=== PATIENT | male | born 1965 | race Caucasian/White ===

== ENCOUNTER 2018-10-23 21:36 | Outpatient (REF) | payer BC, SELFPAY ==
[2018-10-23 22:55] LABS: ALT 79 U/L (12-78); AST 34 U/L (15-37); Albumin 3.6 g/dL (3.4-5.0); Alkaline Phosphatase 93 U/L (46-116); Anion Gap 11.2 mmol/L (3-11); BUN 17 mg/dL (7-18); Bilirubin, Total 0.3 mg/dL (0.2-1.0); CO2 29.8 mmol/L (21.0-32.0); CREATININE 1.01 mg/dL (0.70-1.30); Calcium 9.6 mg/dL (8.5-10.1); Chloride 96 mmol/L (98-107); Cholesterol 208 mg/dL (50-200); Glucose 261 mg/dL (70-100); HDL Cholesterol 31 mg/dL (40-60); LDL CHOLESTEROL 139 mg/dL (<100); Magnesium 1.4 mg/dL (1.8-2.4); Potassium 3.4 mmol/L (3.5-5.1); Sodium 137 mmol/L (136-145); Total Protein 7.3 g/dL (6.4-8.2); Triglyceride 321 mg/dL (30-150); Vitamin B12 626 pg/mL (193-986)
[2018-10-23 23:37] LABS: Creatine Kinase 281 U/L (39-308)
[2018-10-26 11:28] LABS: Hepatitis A Antibody IgM Negative (NEGAT); Hepatitis B Core Antibody Negative (NEGAT); Hepatitis B surface Ag Negative (NEGAT); Hepatitis C Ab w Rflx HCV PCR Negative (NEGAT)
== END 2018-10-23 21:56 ==
LOC: NCHCN 21:36
PROVIDERS: PCP Nurse Practitioner; Visit Provider Nurse Practitioner Family
DX: E78.5 Hyperlipidemia, unspecified (principal); E11.9 Type 2 diabetes mellitus without complications; M45.9 Ankylosing spondylitis of unspecified sites in spine; I10 Essential (primary) hypertension; K21.9 Gastro-esophageal reflux disease without esophagitis; R74.0 Nonspecific elevation of levels of transaminase and lactic acid dehydrogenase [LDH]
CPT/HCPCS: 80053; 80061; 82550; 83721; 86704; 86709; 86803; 87340; 82607; 83735

== ENCOUNTER 2018-11-06 00:26 | Outpatient (CLI) | payer BC, SELFPAY ==
--- NOTE | 2018-11-06 08:53 | DI.US_ITS ---
SYMPTOMS/DIAGNOSIS: ELEVATED TRANSAMINASES, R74.0, HYPOMAGNESEMIA, E83.42, HYPERLIPIDEMIA, E79.5 ABDOMINAL ULTRASOUND: Comparison CT scan is 01/17/09. The proximal aorta is not well visualized. The mid and distal aorta is of normal caliber. The proximal IVC is unremarkable. The liver is normal in size. There is diffuse increased echogenicity of the liver consistent with fatty infiltration. No hepatic mass is seen. The gallbladder, bile ducts and spleen are unremarkable. The tail of the pancreas was not well visualized due to overlying bowel. The remainder of the pancreas has a normal appearance. The kidneys have a normal appearance except for a 0.9 cm simple cyst on the left kidney. IMPRESSION: Hepatic steatosis.
== END 2018-11-06 00:46 ==
PROVIDERS: PCP Internal Medicine; Visit Provider Nurse Practitioner Family
DX: R74.0 Nonspecific elevation of levels of transaminase and lactic acid dehydrogenase [LDH] (principal); E83.42 Hypomagnesemia; E78.5 Hyperlipidemia, unspecified; K76.0 Fatty (change of) liver, not elsewhere classified
CPT/HCPCS: 76700

== ENCOUNTER 2018-11-06 16:29 | Outpatient (REF) | payer BC, SELFPAY ==
[2018-11-06 22:16] LABS: Magnesium 1.7 mg/dL (1.8-2.4); Potassium 4.1 mmol/L (3.5-5.1)
== END 2018-11-06 16:49 ==
LOC: NCHCN 16:29
PROVIDERS: PCP Internal Medicine; Visit Provider Nurse Practitioner Family
DX: E83.42 Hypomagnesemia (principal); I10 Essential (primary) hypertension
CPT/HCPCS: 83735; 84132

== ENCOUNTER 2019-01-22 22:24 | Outpatient (REF) | payer BC, SELFPAY ==
[2019-01-22 21:44] LABS: ALT 96 U/L (12-78); AST 47 U/L (15-37); Albumin 3.8 g/dL (3.4-5.0); Alkaline Phosphatase 90 U/L (46-116); Anion Gap 8.8 mmol/L (3-11); BUN 17 mg/dL (7-18); Bilirubin, Total 0.2 mg/dL (0.2-1.0); CO2 31.2 mmol/L (21.0-32.0); CREATININE 1.07 mg/dL (0.70-1.30); Calcium 9.3 mg/dL (8.5-10.1); Chloride 96 mmol/L (98-107); Creatine Kinase 352 U/L (39-308); Glucose 323 mg/dL (70-100); Magnesium 1.6 mg/dL (1.8-2.4); Potassium 3.6 mmol/L (3.5-5.1); Sodium 136 mmol/L (136-145); Total Protein 7.3 g/dL (6.4-8.2)
== END 2019-01-22 22:44 ==
LOC: NCHCN 22:24
PROVIDERS: PCP Internal Medicine; Visit Provider Nurse Practitioner Family
DX: E78.5 Hyperlipidemia, unspecified (principal); E11.9 Type 2 diabetes mellitus without complications; I10 Essential (primary) hypertension; K21.9 Gastro-esophageal reflux disease without esophagitis; K76.0 Fatty (change of) liver, not elsewhere classified; M45.9 Ankylosing spondylitis of unspecified sites in spine
CPT/HCPCS: 80053; 82550; 83735

== ENCOUNTER 2019-05-15 18:29 | Outpatient (REF) | payer BC, SELFPAY ==
[2019-05-15 22:32] LABS: Magnesium 2.1 mg/dL (1.8-2.4)
== END 2019-05-15 18:49 ==
LOC: NCHCN 18:29
PROVIDERS: PCP Internal Medicine; Visit Provider Nurse Practitioner Family
DX: E83.42 Hypomagnesemia (principal); R74.8 Abnormal levels of other serum enzymes; R74.0 Nonspecific elevation of levels of transaminase and lactic acid dehydrogenase [LDH]; I10 Essential (primary) hypertension
CPT/HCPCS: 83735

== ENCOUNTER 2019-09-27 00:41 | Outpatient (CLI) | payer BC, SELFPAY ==
--- NOTE | 2019-09-27 13:12 | DI.RAD_ITS ---
EXAM: XR CERVICAL SPINE COMP 4-5V INDICATION: ANKYLOSING SPONDYLITIS M45.9. COMPARISON: No exams were available for comparison TECHNIQUE: 2D digital imaging was performed. FINDINGS: There is narrowing and spurring at the anterior arch of C1 with the dens. There are endplate osteoph ytes projecting anteriorly at C2-3 and C4-5. Syndesmophyte formation is seen from C2 through C4. Th ere is some straightening of the normal cervical lordosis at these levels. The disc spaces are well m aintained. There is mild to moderate bilateral neural foraminal narrowing. IMPRESSION: Syndesmophyte formation greatest from C2 through C4.
--- NOTE | 2019-09-27 13:17 | DI.RAD_ITS ---
EXAM: XR THORACIC SPINE COMPLETE INDICATION: ANKYLOSING SPONDYLITIS M45.9. COMPARISON: THORACIC SPINE from 12/03/2011 TECHNIQUE: 2D digital imaging was performed. FINDINGS: There is again noted to be accenuation of the normal thoracic kyphosis. No compression fractures ar e seen. There is mild syndesmophyte formation seen along the anterior and lateral aspect of the vert ebral bodies. There is a mild levoscoliosis at the thoracolumbar junction. IMPRESSION: Mild syndesmophyte formation, consistent with the patient's history of ankylosing spondylitis. Findi ngs not significantly changed from the previous exam.
--- NOTE | 2019-09-27 13:20 | DI.RAD_ITS ---
EXAM: XR LUMBAR SPINE COMPLETE INDICATION: ANKYLOSING SPONDYLITIS M45.9. COMPARISON: No exams were available for comparison TECHNIQUE: 2D digital imaging was performed. FINDINGS: There is mild syndesmophyte formation seen greatest laterally at L2-3 and L 3 4. There is some air irregularity of both SI joints. The pubic symphysis is unremarkable. The disc spaces are and verteb ral bodies are well maintained in height. There is no spondylolysis or spondylolisthesis. IMPRESSION: Mild syndesmophyte formation and bilateral SI joint irregularity consistent with the patient's histor y of ankylosing spondylitis.
== END 2019-09-27 01:01 ==
PROVIDERS: PCP Internal Medicine; Visit Provider Nurse Practitioner Family
DX: M45.5 Ankylosing spondylitis of thoracolumbar region (principal); M53.3 Sacrococcygeal disorders, not elsewhere classified; M45.3 Ankylosing spondylitis of cervicothoracic region
CPT/HCPCS: 72050; 72072; 72110

== ENCOUNTER 2019-11-26 19:30 | Outpatient (REF) | payer BC, SELFPAY ==
[2019-11-26 21:07] LABS: ALT 98 U/L (16-63); AST 45 U/L (15-37); Albumin 3.6 g/dL (3.4-5.0); Alkaline Phosphatase 88 U/L (46-116); Anion Gap 12.8 mmol/L (3-11); BUN 15 mg/dL (7-18); Bilirubin, Total 0.3 mg/dL (0.2-1.0); CO2 28.2 mmol/L (21.0-32.0); CREATININE 1.11 mg/dL (0.70-1.30); Calcium 9.2 mg/dL (8.5-10.1); Calculated LDL 129 mg/dL (<100); Chloride 99 mmol/L (98-107); Cholesterol 205 mg/dL (<200); Glucose 134 mg/dL (74-106); HDL Cholesterol 29 mg/dL (40-60); Magnesium 1.5 mg/dL (1.8-2.4); Potassium 3.5 mmol/L (3.5-5.1); Sodium 140 mmol/L (136-145); Triglyceride 237 mg/dL (<150)
== END 2019-11-26 19:50 ==
LOC: NCHCN 19:30
PROVIDERS: PCP Internal Medicine; Visit Provider Nurse Practitioner Family
DX: R74.8 Abnormal levels of other serum enzymes (principal); K76.0 Fatty (change of) liver, not elsewhere classified; E83.42 Hypomagnesemia; E78.5 Hyperlipidemia, unspecified; E11.9 Type 2 diabetes mellitus without complications; I10 Essential (primary) hypertension; K21.9 Gastro-esophageal reflux disease without esophagitis; M45.9 Ankylosing spondylitis of unspecified sites in spine
CPT/HCPCS: 80053; 80061; 83735

== ENCOUNTER 2020-04-03 02:57 | Outpatient (CLI) | payer BC, SELFPAY ==
--- NOTE | 2020-04-03 | DI.US_ITS ---
EXAM: US PAIN CLINIC NEEDLE GUIDANCE CLINICAL HISTORY: ANKYLOSING SPONDYLITIS WITH GLOBAL SPINE PAIN. TECHNIQUE: Ultrasound was performed using standard protocol. COMPARISON: No exams were available for comparison FINDINGS: Sonographic assessment utilizing grayscale and color Doppler imaging was performed and targeted to th e area of clinical concern. Ultrasound was provided for guidance with pain clinic injection of the l umbar spine. Please see procedure note for details. DATA REPOSITORY:
[2020-04-03 13:17] VITALS: BP 114/82; PULSE 71; RESP 16; TEMP 36.5; O2SAT 97
[2020-04-03 13:46] VITALS: PULSE 77; O2SAT 100
--- NOTE | 2020-04-03 13:51 | PDOC.PAIN_ITS ---
Pain Clinic Procedure Note Procedure Note Procedure Note: ULTRASOUND GUIDED bilateral trapezius and lumbar paraspinous muscle trigger point injections Pre-Procedural Evaluation: JASBIR TONY has been referred to the [facility] for an Ultrasound Guided bilateral trapezius and lumbar paraspinous muscle trigger point injections for a chief complaint of muscle pain. Pre-procedure Pain Score: 5/10 DX: Muscle pain Patient was interviewed and the medical record reviewed. There were no medical, pharmacologic, radiographic, or other structural contraindications to preforming an ultrasound guided injection. Risks and expected side effects as well as potential benefits of the procedure were reviewed. The patient consent form was signed and witnessed. Standard time-out procedure was performed. The use of direct ultrasound visualization of the needle (rather than a non- guided injection) was required to increase patient safety by excluding inadvertent intramuscular, intratendinous, or intraneural needle placement and minimizing bleeding by avoiding osteochondral or vascular injury from the needle. Additionally, the increased accuracy of placement may increase clinical effectiveness and will allow higher diagnostic specificity when evaluating effectiveness of this injection. Procedure Description: The patient was placed in theprone position and automated blood pressure cuff and pulse oximeter applied for monitoring during the procedure and recorded in the medical record. Pre-injection ultrasound scanning of the area of interest was performed using a linear transducer, identifying relevant anatomy, landmarks, and neurovascular structures allowing for optimal needle path. The site was then prepared in the usual sterile fashion, using thorough Chlorhexadine preparation of the skin and sterile draping. The same ultrasound transducer was then passed into the sterile field using sterile probe cover and sterile ultrasound gel. The injection target was again visualized. Skin and subcutaneous tissues were anesthetized with 3 mL of 1% Lidocaine. A 21G 100 mm Pajunk US needle was placed under live ultrasound guidance, using an in- plane approach, to the target area. After visualization of the needle tip at the target area, 1 cc of 2% lidocaine was delivered to each muscle after negative aspiration for blood. Several passes were then made through each muscle. Ultrasound images were captured and stored for documentation purposes. Post-procedure Pain Score:1/10 Vital signs were stable throughout the procedure and were as recorded in the docflowsheet by the nursing staff. Follow up plans and appointments were discussed with the patient.Post procedure instruction was given as documented in nursing documentation and having met discharge criteria, they were discharged from the [facility]. COMMENTS: Home exercises were taught
[2020-04-03] MEDS: Lidocaine 2% Pres-Free 5 ML VIAL IJ (13:52)
== END 2020-04-03 03:17 ==
PROVIDERS: PCP Internal Medicine; Visit Provider Preventive Medicine Occupational Medicine
DX: M54.5 Low back pain (principal)
CPT/HCPCS: 20553; 76942

== ENCOUNTER 2021-08-17 17:49 | Outpatient (REF) | payer BC, SELFPAY ==
[2021-08-17 22:30] LABS: COMMENT (LAB VIEW ONLY) 135.84 mg/dL
== END 2021-08-17 17:50 | disposition home or self-care (01) ==
LOC: NCHCN 17:49
PROVIDERS: PCP Internal Medicine; Visit Provider Family Medicine
DX: E11.9 Type 2 diabetes mellitus without complications (principal)
CPT/HCPCS: 82043; 82570

== ENCOUNTER 2021-10-19 17:01 | Outpatient (REF) | payer BC, SELFPAY ==
[2021-10-19 21:08] LABS: Anion Gap 9.2 mmol/L (3-11); BUN 12 mg/dL (7-18); CO2 29.8 mmol/L (21.0-32.0); CREATININE 0.9 mg/dL (0.70-1.30); Calcium 9.2 mg/dL (8.5-10.1); Chloride 104 mmol/L (98-107); Glucose 143 mg/dL (74-106); Potassium 4.4 mmol/L (3.5-5.1); Sodium 143 mmol/L (136-145)
== END 2021-10-19 17:02 | disposition home or self-care (01) ==
LOC: NCHCN 17:01
PROVIDERS: PCP Internal Medicine; Visit Provider Family Medicine
DX: I10 Essential (primary) hypertension (principal); E87.6 Hypokalemia; E83.42 Hypomagnesemia
CPT/HCPCS: 80048

== ENCOUNTER 2022-02-12 17:45 | Outpatient (REF) | payer BC, SELFPAY ==
[2022-02-12 20:34] LABS: HCT 42.4 % (40.0-50.0); HGB 13.9 g/dL (13.5-17.5); MCH 29.7 pg (27.0-33.0); MCHC 32.8 % (32.0-36.0); MCV 91 fL (80-95); MPV 9.9 fL (8.0-11.0); Platelet Count 455 10^3/uL (130-400); RBC 4.68 10^6/uL (4.36-5.78); RDW 14.5 % (11.8-14.1); RDW-SD 47.9 fL; WBC 10.24 10^3/uL (4.4-10.8)
[2022-02-12 20:47] LABS: Anion Gap 8.5 mmol/L (3-11); BUN 12 mg/dL (7-18); CO2 31.5 mmol/L (21.0-32.0); Calcium 9.4 mg/dL (8.5-10.1); Chloride 98 mmol/L (98-107); Glucose 174 mg/dL (74-106); Potassium 3.6 mmol/L (3.5-5.1); Sodium 138 mmol/L (136-145)
[2022-02-12 20:53] LABS: Hemoglobin A1C 6.3 % (<5.7)
== END 2022-02-12 17:46 | disposition home or self-care (01) ==
LOC: NCHCN 17:45
PROVIDERS: PCP Internal Medicine; Visit Provider Family Medicine
DX: I10 Essential (primary) hypertension (principal); E11.9 Type 2 diabetes mellitus without complications
CPT/HCPCS: 80048; 85027; 83036

== ENCOUNTER 2022-12-21 09:48 | Emergency (ER) | payer OTHER, SELFPAY ==
[2022-12-21 10:08] VITALS: BP 127/79; PULSE 63; RESP 18; TEMP 37.1; O2SAT 97
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
[2022-12-21] MEDS: Ketorolac 15 MG/ML VIAL IM (11:19)
[2022-12-21] MEDS: Lidocaine 5% Patch 1 PATCH TP (11:19)
== END 2022-12-21 11:19 | disposition home or self-care (01) ==
PROVIDERS: Emergency Provider Emergency Medicine; PCP Internal Medicine
DX: G89.11 Acute pain due to trauma (principal); M54.50 Low back pain, unspecified; M54.6 Pain in thoracic spine; I10 Essential (primary) hypertension; E11.9 Type 2 diabetes mellitus without complications; V89.2XXA Person injured in unspecified motor-vehicle accident, traffic, initial encounter
CPT/HCPCS: 96372; 99283; J1885

== ENCOUNTER 2023-07-13 15:06 | Outpatient (REF) | payer OTHER, SELFPAY ==
[2023-07-13 16:25] LABS: HCT 43.5 % (40.0-50.0); HGB 14.3 g/dL (13.5-17.5); MCH 28.3 pg (27.0-33.0); MCHC 32.9 % (32.0-36.0); MCV 86 fL (80-95); MPV 10.2 fL (8.0-11.0); Platelet Count 502 10^3/uL (130-400); RBC 5.05 10^6/uL (4.36-5.78); RDW 15.3 % (11.8-14.1); RDW-SD 48.4 fL; WBC 10.73 10^3/uL (4.4-10.8)
[2023-07-13 16:55] LABS: ALT 25 U/L (16-63); AST 21 U/L (15-37); Albumin 3.8 g/dL (3.4-5.0); Alkaline Phosphatase 96 U/L (46-116); BUN 15 mg/dL (7-18); Bilirubin, Total 0.2 mg/dL (0.2-1.0); Calcium 9.9 mg/dL (8.5-10.1); Chloride 97 mmol/L (98-107); Creatine Kinase 205 U/L (39-308); Glucose 209 mg/dL (74-106); Potassium 3.8 mmol/L (3.5-5.1); Sodium 136 mmol/L (136-145); Total Protein 7.5 g/dL (6.4-8.2)
== END 2023-07-13 15:07 | disposition home or self-care (01) ==
LOC: NCHCN 15:06
PROVIDERS: PCP Internal Medicine; Visit Provider Family Medicine
DX: E11.9 Type 2 diabetes mellitus without complications (principal); I10 Essential (primary) hypertension; E87.6 Hypokalemia; K21.9 Gastro-esophageal reflux disease without esophagitis
CPT/HCPCS: 80053; 82550; 85027

== ENCOUNTER 2023-10-24 15:29 | Outpatient (REF) | payer OTHER, SELFPAY ==
[2023-10-24 21:31] LABS: Abs Immature Grans 0.03 10^3/uL (0.0-0.06); Absolute Eosinophil Count 0.44 10^3/uL (0.0-0.7); Absolute Lymphocyte Count 2.69 10^3/uL (1.2-3.4); Absolute Monocyte Count 0.76 10^3/uL (0.1-0.8); Absolute Neutrophil Count 6.04 10^3/uL (1.2-6.7); Eosinophils % 4.4; HCT 40.1 % (40.0-50.0); HGB 13.2 g/dL (13.5-17.5); Immature Grans % 0.3; Lymphocytes % 26.7; MCH 27.8 pg (27.0-33.0); MCHC 32.9 % (32.0-36.0); MCV 85 fL (80-95); MPV 10.8 fL (8.0-11.0); Monocytes % 7.6; Platelet Count 351 10^3/uL (130-400); RBC 4.74 10^6/uL (4.36-5.78); RDW 15.1 % (11.8-14.1); RDW-SD 46.5 fL; WBC 10.06 10^3/uL (4.4-10.8)
== END 2023-10-24 15:30 | disposition home or self-care (01) ==
LOC: NCHCN 15:29
PROVIDERS: PCP Family Medicine; Visit Provider Family Medicine
DX: E11.9 Type 2 diabetes mellitus without complications (principal)
CPT/HCPCS: 85025

== ENCOUNTER 2023-12-05 15:18 | Inpatient (IN) | payer OTHER, SELFPAY ==
[2023-12-05] VITALS (48 sets, daily range): BP systolic 132–243; BP diastolic 71–102; PULSE 41–54; RESP 9–21; TEMP 36.8–37; O2SAT 94–96
--- NOTE | 2023-12-05 15:00 | RT.EKG_ITS ---
APPROVED REPORT Exam: Resting ECG Reason for Exam: chest pain Patient Location: E HR:45 bpm ECG Measurements Heart Rate 45 AXIS MN 198 P 46 QRSd 146 QRS 65 QT 486 T 5 QTc 419 Conclusion Sinus bradycardia 45 RBBB no stemi
--- NOTE | 2023-12-05 15:15 | DI.RAD_ITS ---
Exam(s) XR PORTABLE CHEST AP EXAM: XR PORTABLE CHEST AP CLINICAL HISTORY: chest pain. TECHNIQUE: 2D digital imaging was performed. COMPARISON: No exams were available for comparison FINDINGS: Single AP portable view. Heart size is upper normal. The mediastinum is not widened. Lungs are clear. No infiltrates nor obvious pleural effusions. IMPRESSION: No acute pulmonary findings on this single AP portable view of the chest. DATA REPOSITORY: RADIATION DOSE DELIVERED:
[2023-12-05 15:36] LABS: Abs Immature Grans 0.05 10^3/uL (0.0-0.06); Absolute Basophil Count 0.12 10^3/uL (0.0-0.2); Absolute Eosinophil Count 0.43 10^3/uL (0.0-0.7); Absolute Lymphocyte Count 3.21 10^3/uL (1.2-3.4); Absolute Monocyte Count 0.83 10^3/uL (0.1-0.8); Absolute Neutrophil Count 6.89 10^3/uL (1.2-6.7); Eosinophils % 3.7; HCT 42.5 % (40.0-50.0); HGB 13.9 g/dL (13.5-17.5); Immature Grans % 0.4; Lymphocytes % 27.9; MCH 27.3 pg (27.0-33.0); MCHC 32.7 % (32.0-36.0); MCV 83 fL (80-95); MPV 10.1 fL (8.0-11.0); Monocytes % 7.2; Neutrophils % 59.8; Platelet Count 417 10^3/uL (130-400); RDW 14.9 % (11.8-14.1); RDW-SD 45.1 fL; WBC 11.52 10^3/uL (4.4-10.8)
[2023-12-05 15:47] LABS: INR 0.9 (0.9-1.1); Prothrombin Time 9.3 sec (9.1-11.1)
[2023-12-05 15:58] LABS: ALT 29 U/L (16-63); AST 16 U/L (15-37); Albumin 3.9 g/dL (3.4-5.0); Alkaline Phosphatase 81 U/L (46-116); Anion Gap 10.2 mmol/L (3-11); BUN 15 mg/dL (7-18); Bilirubin, Total 0.2 mg/dL (0.2-1.0); CO2 29.8 mmol/L (21.0-32.0); CREATININE 0.9 mg/dL (0.70-1.30); Calcium 9.7 mg/dL (8.5-10.1); Chloride 100 mmol/L (98-107); Estimated GFR 98.38 (mL/min/1.73m2); Glucose 72 mg/dL (74-106); Magnesium 1.8 mg/dL (1.8-2.4); NT-proBNP 127 pg/mL (<300); Potassium 3.4 mmol/L (3.5-5.1); Sodium 140 mmol/L (136-145); Total Protein 7.9 g/dL (6.4-8.2); Troponin I < 50 ng/L (< or =60)
[2023-12-05] MEDS: Acetaminophen 500 MG TAB 1000 MG PO (16:36)
[2023-12-05 17:09] LABS: Troponin I < 50 ng/L (< or =60)
[2023-12-05] MEDS: amLODIPine 5 MG TAB PO (17:15)
--- NOTE | 2023-12-05 17:30 | DI.CT_ITS ---
Exam(s) CT HEAD WO EXAM: CT HEAD WO CLINICAL HISTORY: headache. TECHNIQUE: Imaging Protocol: Axial computed tomography images with coronal and sagittal reformatted images were created and reviewed COMPARISON: No exams were available for comparison FINDINGS: There are no skull fractures. There is no fluid in the visualized paranasal sinuses. There is no evidence of intracranial hemorrhage, mass effect, or shift of midline structures. There are no extra-axial fluid collections. The ventricles are not enlarged or shifted and there is no blo od within the ventricular system nor within the basal cisterns. There is some periventricular hypodensity consistent with chronic small vessel disease, this most duke dent around the posterior aspect of the left lateral ventricle in the left parietal region. There is calcification left vertebral artery at the skull base. IMPRESSION: Some mild hypodensity in the left parietal lobe which may be consistent with chronic small vessel dis ease but comparison to any prior outside images would be helpful if they exist. If clinically indica mackenzie follow-up MRI imaging can be performed. RADIATION DOSE DELIVERED: 735.84mGy.cm Total DLP DATA REPOSITORY: All CT scans at this facility are submitted to the National Radiology Data Registry (NRDR) Dose Index Registry (DIR) with the [employer] (ACR). RADIATION OPTIMIZATION: All CT scans at this facility use at least one of these dose optimization te chniques: automated exposure control; mA and/or kV adjustment per patient size (includes targeted exa ms where dose is matched to clinical indication); or iterative reconstruction.
--- NOTE | 2023-12-05 18:25 | W.PM.HP.N ---
Date of service: 12/05/23 Time of Service: 19:02 Assessment and Plan Assessment and plan (1) Hypertensive emergency: Status: Acute Assessment and plan: - Patient presented chest pain and headache was found to have an initial blood pressure of 212/92 -While in the emergency department he was given 5 mg Norvasc and nitroglycerin paste which improved patient's chest pain as well as his blood pressure systolically down to 140 -Will not replace Nitropaste as do want to allow for permissive hypertension as patient was also found to have parietal lobe CVA -At this time we will hold home antihypertensives including chlorthalidone, lisinopril (2) CVA (cerebral vascular accident): Status: Chronic Assessment and plan: - As noted on head CT patient appears to have on hypodensity left parietal lobe which may be consistent with chronic small vessel disease but could also be CVA -MRI/MRA head and neck has been ordered as well as echocardiogram -Aspirin was not given in the emergency department but will be ordered upon arrival to [facility] (3) Bradycardia: Status: Acute Assessment and plan: - Patient also found to be bradycardic with heart rates in the 40s during ED evaluation -This likely secondary to atenolol which patient takes 100 mg daily -Will hold atenolol and placed in ICU for close cardiac monitoring -If patient develops symptomatic bradycardia or his heart rate is consistently under 30 will initiate atropine -Additionally, if patient remains bradycardic after reasonable. For which atenolol should be washed out of his system, will consult cardiology for possible evaluation of pacemaker placement (4) Insulin dependent type 2 diabetes mellitus: Status: Acute Assessment and plan: - Continue home long-acting insulin, Lantus 28 units daily -Sliding scale insulin, carb consistent diet History of Present Illness History of Present Illness Chief Complaint: Chest pain for about 1 month, headache for 1 day Narrative: 58-year-old male with a past medical history of IDDM, hypertension, peripheral neuropathy, presents emergency department with complaints of chest pain and headache. Patient states that he has noticed that his blood pressure has been elevated over the last few days and that he has had some associated chest pressure with this but does not describe it as pain. He also states that he has been having an ongoing headache does not know how long it has been going on for. He denies any lightheadedness, dizziness, visual changes, nausea vomiting diarrhea constipation, upper or lower extremity weakness. In the emergency department the patient was noted as being significantly hypertensive with systolics in the 210s and bradycardia with heart rate in the 40s. CBC and CMP were unremarkable, and troponin was negative, but head CT showed area in the parietal lobe that could be either chronic microvascular change or potential CVA. He was given Norvasc for his blood pressure and ultimately nitroglycerin patient with did improve his pressures down to the 150s systolic. However, emergency room physician paged hospitalist for admission for patient with suspected CVA and bradycardia. Review of Systems All systems reviewed & are unremarkable except as noted in HPI and below PFSH All Active Problems (Updated 12/05/23 @ 21:15 by Marla Son MD) Insulin dependent type 2 diabetes mellitus (Acute) Bradycardia (Acute) CVA (cerebral vascular accident) (Chronic) Hypertensive emergency (Acute) Medical History Steatosis Elevated LFTs Hypomagnesemia Hypokalemia HLD (hyperlipidemia) Ankylosing spondylitis GERD (gastroesophageal reflux disease) Elevated transaminase level Elevated CPK Deafness in left ear HTN (hypertension) Type 2 diabetes mellitus Family History Mother Diabetes Father Diabetes Social History Smoking/Tobacco Use Status: Current-Occasional Smoking risk assessment performed?: Yes Alcohol Intake: current Alcohol Intake frequency: a few times a month Drug use: Never Substance use type: does not use Household members: spouse and children Housing: house Communication Needs: Hard of Hearing current occupation: [employer] ([employer]) Pets and animals: Yes Pets and animals: cat(s) and dog(s) Special mayi needs: No Seatbelt use: always Do you feel safe at home: Yes Do you feel safe in your relationship?: Yes Meds Allergies and Home Medications Allergies Allergy/AdvReac Type Severity Reaction Status Date / Time penicillin V Allergy Unknown Verified 10/22/20 13:31 Home Medications Medication Instructions Recorded Confirmed Type aspirin 81 mg tablet,delayed 81 mg PO DAILY 10/26/19 12/06/23 History release atenolol 100 mg tablet 100 mg PO DAILY 10/26/19 12/06/23 History chlorthalidone 25 mg tablet 25 mg PO DAILY 10/26/19 12/06/23 History cholecalciferol (vitamin D3) 25 1,000 unit PO DAILY 10/26/19 12/06/23 History mcg (1,000 unit) tablet gabapentin 400 mg capsule 400 mg PO DAILY 10/26/19 12/06/23 History gabapentin 600 mg tablet 600 mg PO BID 10/26/19 12/06/23 History glipizide 10 mg tablet 10 mg PO BID 10/26/19 12/06/23 History indomethacin 75 mg 75 mg PO DAILY 10/26/19 12/06/23 History capsule,extended release lisinopril 40 mg tablet 40 mg PO DAILY 10/26/19 12/06/23 History magnesium 250 mg tablet 500 mg PO DAILY 10/26/19 12/06/23 History metformin 1,000 mg tablet 1,000 mg PO BID 10/26/19 12/06/23 History omeprazole 40 mg capsule,delayed 40 mg PO DAILY 10/26/19 12/06/23 History release famotidine 20 mg tablet (Pepcid) 20 mg PO DAILY 11/08/19 12/06/23 History Exam Narrative Exam Narrative: Well-appearing gentleman laying in bed in no acute distress, ANO x 4, heart rate slow, heart rate in the low 40s, lungs clear to auscultation bilaterally, abdomen soft, nontender, nondistended, cranial nerves II through XII intact, PERRLA, normal sensation and strength in bilateral upper and lower extremities Results Labs 12/05/23 15:20 12/05/23 15:20 Labs: Laboratory Results - last 24 hr 12/05/23 12/05/23 15:20 16:25 WBC 11.52 H RBC 5.10 Hgb 13.9 Hct 42.5 MCV 83 MCH 27.3 MCHC 32.7 RDW 14.9 H Plt Count 417 H MPV 10.1 Immature Gran % 0.4 Neutrophils % 59.8 Lymphocytes % 27.9 Monocytes % 7.2 Eosinophils % 3.7 Basophils % 1.0 Nucleated RBC % 0.0 Absolute Neutrophils 6.89 H Absolute Lymphocytes 3.21 Absolute Monocytes 0.83 H Absolute Eosinophils 0.43 Absolute Basophils 0.12 PT 9.3 INR 0.9 Sodium 140 Potassium 3.4 L Chloride 100 Carbon Dioxide 29.8 Anion Gap 10.2 BUN 15 Creatinine 0.9 Est GFR (CKD-EPI 2020) 98.38 Glucose 72 L Calcium 9.7 Magnesium 1.8 Total Bilirubin 0.2 AST 16 ALT 29 Alkaline Phosphatase 81 Troponin I < 50 < 50 NT-Pro-B Natriuret Pep 127 Total Protein 7.9 Albumin 3.9 Last Vital Signs Temp 98.6 F 12/05/23 17:17 Pulse 45 L 12/05/23 17:17 Resp 16 12/05/23 15:10 BP 146/86 H 12/05/23 17:17 Pulse Ox 94 12/05/23 17:17 Time Spent Time spent with Patient: >75 minutes Time was spent: preparing to see the patient(eg.review tests), obtaining and/or reviewing separately otained hiistory, ordering medications,tests, procedures, referring, communicating with other health career development specialist, indepentently interpreting results, counseling the patient and care coordination
--- NOTE | 2023-12-05 21:09 | W.ED.GENAD ---
HPI General Date/Time Provider Initiated Documentation: 12/05/23 15:24. Limitations to Documentation: no limitations. Information obtained by: patient. HPI Narrative: 58-year-old gentleman with past medical history of diabetes, hypertension, presents for evaluation of elevated blood pressure and chest pain. He reports that his blood pressure has been difficult to control and that has been running high for the last few days. Today he was having some chest pressure. Does not describe it as chest pain. He states that he is also been having a headache ongoing for some time. He does not really remember when it started. Not acute onset. Not associated with visual changes, unilateral weakness or other speech difficulties. Related Data Home Medications Medication Instructions Recorded Confirmed aspirin 81 mg tablet,delayed 81 mg PO DAILY 10/26/19 12/21/22 release atenolol 100 mg tablet 100 mg PO DAILY 10/26/19 12/21/22 atenolol 25 mg tablet 25 mg PO DAILY 10/26/19 04/03/20 chlorthalidone 25 mg tablet 25 mg PO DAILY 10/26/19 12/21/22 cholecalciferol (vitamin D3) 25 1,000 unit PO DAILY 10/26/19 12/21/22 mcg (1,000 unit) tablet gabapentin 400 mg capsule 400 mg PO DAILY 10/26/19 12/21/22 gabapentin 600 mg tablet 600 mg PO BID 10/26/19 12/21/22 glipizide 10 mg tablet 10 mg PO BID 10/26/19 12/21/22 indomethacin 75 mg 75 mg PO DAILY 10/26/19 12/21/22 capsule,extended release insulin glargine 100 unit/mL (3 28 unit subcut DAILY 10/26/19 12/21/22 mL) subcutaneous pen (Lantus Solostar U-100 Insulin) lisinopril 40 mg tablet 40 mg PO DAILY 10/26/19 12/21/22 magnesium 250 mg tablet 500 mg PO DAILY 10/26/19 12/21/22 metformin 1,000 mg tablet 1,000 mg PO BID 10/26/19 12/21/22 omeprazole 40 mg capsule,delayed 40 mg PO DAILY 10/26/19 12/21/22 release baclofen 10 mg tablet 10 mg PO TID for muscle spasm 30 11/08/19 12/21/22 days #90 tabs famotidine 20 mg tablet (Pepcid) 20 mg PO DAILY 11/08/19 12/21/22 liraglutide 0.6 mg/0.1 mL (18 mg/3 1.2 mg subcut DAILY 11/08/19 12/21/22 mL) subcutaneous pen injector (Victoza 2-Gaston) cyclobenzaprine 5 mg tablet 5 mg PO QHS PRN #7 tabs 12/21/22 cyclobenzaprine 5 mg tablet 5 mg PO QHS PRN muscle spasm #7 12/21/22 tabs Previous Rx's Medication Instructions Recorded baclofen 10 mg tablet 10 mg PO TID for muscle spasm 30 11/08/19 days #90 tabs cyclobenzaprine 5 mg tablet 5 mg PO QHS PRN #7 tabs 12/21/22 cyclobenzaprine 5 mg tablet 5 mg PO QHS PRN muscle spasm #7 12/21/22 tabs Allergies Allergy/AdvReac Type Severity Reaction Status Date / Time penicillin V Allergy Unknown Verified 10/22/20 13:31 General Stated Complaint: Chest Pain LEANDRO: 3 Exam Narrative Exam Narrative: Review of Systems: All systems reviewed & are unremarkable except as noted in HPI and below Well-developed, no acute distress NCAT PERRL, normal conjunctiva RRR, no murmur Hypertension+ Unlabored respiratory effort, clear breath sounds bilaterally Nondistended abdomen, nontender Extremities w/o deformity, no cyanosis, no edema No rashes or lesions. no focal neurologic deficits Appropriate mood and affect Course Vital Signs Vital signs: Vital Signs Temperature 36.9 C 12/05/23 15:10 Pulse 46 L 12/05/23 15:10 Respiratory Rate 16 12/05/23 15:10 Blood Pressure 212/92 H 12/05/23 15:10 Pulse Oximetry 96 12/05/23 15:10 Temperature 37.0 C 12/05/23 17:17 Temperature Source Temporal Artery Scan 12/05/23 17:17 Pulse 43 L 12/05/23 19:46 Pulse 42 L 12/05/23 20:30 Respiratory Rate 15 12/05/23 20:30 Blood Pressure 141/84 H 12/05/23 19:46 Blood Pressure Mean 100 12/05/23 19:46 Pulse Oximetry 94 12/05/23 17:17 Oxygen Delivery Method Room Air 12/05/23 17:17 Oxygen Flow Rate 0 12/05/23 17:17 Pain Level 2 12/05/23 17:17 Lab/Test Results Lab/Test Results: Laboratory Tests Range/Units 12/05/23 12/05/23 15:20 16:25 WBC (4.4-10.8) 10^3/uL 11.52 H RBC (4.36-5.78) 10^6/uL 5.10 Hgb (13.5-17.5) g/dL 13.9 Hct (40.0-50.0) % 42.5 MCV (80-95) fL 83 MCH (27.0-33.0) pg 27.3 MCHC (32.0-36.0) % 32.7 RDW (11.8-14.1) % 14.9 H Plt Count (130-400) 10^3/uL 417 H MPV (8.0-11.0) fL 10.1 Immature Gran % 0.4 Neutrophils % 59.8 Lymphocytes % 27.9 Monocytes % 7.2 Eosinophils % 3.7 Basophils % 1.0 Nucleated RBC % (0.0-0.3) % 0.0 Absolute Neutrophils (1.2-6.7) 10^3/uL 6.89 H Absolute Lymphocytes (1.2-3.4) 10^3/uL 3.21 Absolute Monocytes (0.1-0.8) 10^3/uL 0.83 H Absolute Eosinophils (0.0-0.7) 10^3/uL 0.43 Absolute Basophils (0.0-0.2) 10^3/uL 0.12 PT (9.1-11.1) sec 9.3 INR (0.9-1.1) 0.9 Sodium (136-145) mmol/L 140 Potassium (3.5-5.1) mmol/L 3.4 L Chloride (98-107) mmol/L 100 Carbon Dioxide (21.0-32.0) mmol/L 29.8 Anion Gap (3-11) mmol/L 10.2 BUN (7-18) mg/dL 15 Creatinine (0.70-1.30) mg/dL 0.9 Est GFR (CKD-EPI 2020) (mL/min/1.73m2) 98.38 Glucose (74-106) mg/dL 72 L Calcium (8.5-10.1) mg/dL 9.7 Magnesium (1.8-2.4) mg/dL 1.8 Total Bilirubin (0.2-1.0) mg/dL 0.2 AST (15-37) U/L 16 ALT (16-63) U/L 29 Alkaline Phosphatase (46-116) U/L 81 Troponin I (< or =60) ng/L < 50 < 50 NT-Pro-B Natriuret Pep (<300) pg/mL 127 Total Protein (6.4-8.2) g/dL 7.9 Albumin (3.4-5.0) g/dL 3.9 Medical Decision Making Emergent evaluation of chest pain in the setting of uncontrolled hypertension. Patient has very elevated blood pressure and is having some symptoms of endorgan damage. No evidence of acute stroke on initial evaluation. Describes chest pain as pressure. Initial differential includes hypertensive emergency, ACS, acute intracranial process. Plan for pressure control, lab work and likely admission EKG sinus bradycardia 45, right bundle branch block, no STEMI. Lab work reviewed. Mild leukocytosis, no significant anemia. His potassium is slightly low at 3.4 otherwise no electrolyte derangement. Troponins negative x 2. BNP is not significantly elevated. Chest x-ray reviewed and independently interpreted, no acute cardiopulmonary process. Head CT report reviewed, there is concern for possible subacute infarct. He was given medication for his headache, Norvasc for his blood pressure and nitroglycerin patch to help lower his blood pressure. Given his uncontrolled hypertension, likely new diagnosis of CVA, will admit to the hospital for MRI and medical optimization and blood pressure control. Medical Records Medical records reviewed: Yes I reviewed the patient's medical records. Lab Data Lab results reviewed: Yes I reviewed the patient's lab results. ECG Data Attestation: I personally reviewed and interpreted this ECG (s) as follows: Interpretation: Sinus bradycardia 45 Quality:SDOH Health Related Social Needs: No Data to Display Critical Care Time Critical Care Time Critical Care Time: Yes Total Critical Care Time: 34 Attestation: CRITICAL CARE Upon my evaluation, this patient had a high probability of imminent or life-threatening deterioration due to hypertensive emergency which required my direct attention, intervention, and personal management. I have personally provided 34 minutes of critical care time exclusive of time spent on separately billable procedures. Time includes review of laboratory data, radiology results, discussion with consultants, and monitoring for potential decompensation. Interventions were performed as documented above [facility] All Active Problems (Updated 12/05/23 @ 21:15 by Marla Son MD) Insulin dependent type 2 diabetes mellitus (Acute) Bradycardia (Acute) CVA (cerebral vascular accident) (Chronic) Hypertensive emergency (Acute) Medical History Steatosis Elevated LFTs Hypomagnesemia Hypokalemia HLD (hyperlipidemia) Ankylosing spondylitis GERD (gastroesophageal reflux disease) Elevated transaminase level Elevated CPK Deafness in left ear HTN (hypertension) Type 2 diabetes mellitus Family History Mother Diabetes Father Diabetes Social History Smoking/Tobacco Use Status: Current-Occasional Smoking risk assessment performed?: Yes Alcohol Intake: current Alcohol Intake frequency: a few times a month Drug use: Never Substance use type: does not use Household members: spouse and children Housing: house Communication Needs: Hard of Hearing current occupation: [employer] ([employer]) Pets and animals: Yes Pets and animals: cat(s) and dog(s) Special mayi needs: No Seatbelt use: always Do you feel safe at home: Yes Do you feel safe in your relationship?: Yes Discharge Plan Disposition Patient Disposition: Admit to [facility] Condition: Fair Discharge Details Chief Complaint: Chest Pain Clinical Impression: Insulin dependent type 2 diabetes mellitus, Hypertensive emergency, Bradycardia, CVA (cerebral vascular accident) Primary Care Provider: Duglas Archer ED Provider: Marla Son Home Meds and New Rx's Prescriptions: No Action gabapentin 600 mg Tablet 600 mg PO BID atenolol 100 mg Tablet 100 mg PO DAILY glipizide 10 mg Tablet 10 mg PO BID gabapentin 400 mg Capsule 400 mg PO DAILY atenolol 25 mg Tablet 25 mg PO DAILY Patient Comments: not taking chlorthalidone 25 mg Tablet 25 mg PO DAILY omeprazole 40 mg Capsule,Delayed Release(Dr/Ec) 40 mg PO DAILY aspirin 81 mg Tablet,Delayed Release (Dr/Ec) 81 mg PO DAILY metformin 1,000 mg Tablet 1,000 mg PO BID magnesium 250 mg Tablet 500 mg PO DAILY indomethacin 75 mg Capsule, Extended Release 75 mg PO DAILY lisinopril 40 mg Tablet 40 mg PO DAILY insulin glargine [Lantus Solostar U-100 Insulin] 100 unit/mL (3 mL) Insulin Pen 28 unit SUBCUT DAILY cholecalciferol (vitamin D3) 25 mcg (1,000 unit) Tablet 1,000 unit PO DAILY famotidine [Pepcid] 20 mg tablet 20 mg PO DAILY Victoza 2-Gaston 0.6 mg/0.1 mL (18 mg/3 mL) pen injector 1.2 mg SUBCUT DAILY baclofen 10 mg tablet 10 mg PO TID 30 Days Qty: 90 5RF Patient Comments: not taking Rx Instructions: no abrupt cessation cyclobenzaprine 5 mg tablet 5 mg PO QHS PRN (Reason: muscle spasm) Qty: 7 0RF cyclobenzaprine 5 mg tablet 5 mg PO QHS PRNQty: 7 0RF
[2023-12-05] MEDS: Acetaminophen 325 MG TAB PO (22:43)
[2023-12-06] VITALS (74 sets, daily range): BP systolic 112–182; BP diastolic 70–92; PULSE 39–55; RESP 9–20; TEMP 36.1–36.7; O2SAT 94–99
--- NOTE | 2023-12-06 | DI.MRI_ITS ---
Exam(s) MR ANGIO NECK WO CLINICAL HISTORY: CVA. TECHNIQUE: Performed on 1.5 beck with [id number] sequence. CONTRAST MATERIAL: IV Contrast: None. COMPARISON: None. FINDINGS: NECK CT A STUDY: ANTERIOR CIRCULATION: Common carotid arteries ascend with normal luminal diameters. There is no sign ificant stenosis at the carotid bifurcations nor within the proximal internal carotid arteries on bot h sides the neck. POSTERIOR CIRCULATION: The left vertebral artery is dominant. It is sends within the foramen transverse area with a luminal diameter 6 mm no intraluminal thrombus nor dissection. At the skull base it is the main contributor to the formation of the basilar artery. Right vertebral artery terminates at the skull base as the right posterior inferior cerebellar artery. IMPRESSION: 1. Patent carotid arteries in the neck. No hemodynamically significant stenosis. 2. Left vertebral artery is dominant. DATA REPOSITORY:
--- NOTE | 2023-12-06 | DI.US_ITS ---
APPROVED REPORT EXAM: Comprehensive 2D, Doppler, and color-flow Echocardiogram Patient Location: In-Patient Room/Bed: [id number] Worker: Rosa Maria Bailon RDCS (AE) Indications: CVA Other Information Study Quality: Adequate. Technically limited study due to bedside ICU exam. Conclusion Normal left ventricular wall thickness and chamber size. EF is 55 to 60%. Wall motion is normal Normal right ventricular size and systolic function Both atria are normal in size There is no structural or hemodynamically significant valvular disease Estimated right ventricular systolic pressure is 23 mmHg Wall motion Left Ventricle The left ventricle is normal size. The left ventricular systolic function is normal. The left ventric ular ejection fraction is within the normal range. There is normal left ventricular wall thickness. T here is normal LV segmental wall motion. Transmitral Doppler flow pattern suggests pseudonormalizatio n. There is no ventricular septal defect visualized. LVEF is 57%. Right Ventricle The right ventricle is normal size. The right ventricular systolic function is normal. Atria The left atrium size is normal. The right atrium size is normal. The interatrial septum is intact wit h no evidence for an atrial septal defect. Aortic Valve The aortic valve is normal in structure. Aortic valve is trileaflet. There is no aortic valvular sten osis. No aortic regurgitation is present. Mitral Valve The mitral valve is normal in structure. No evidence of mitral valve stenosis. Trace mitral regurgita tion. Tricuspid Valve The tricuspid valve is normal in structure. There is no tricuspid valve stenosis. Trace tricuspid reg urgitation. The RVSP is 23.5 mmHg. Pulmonic Valve The pulmonary valve is normal in structure. There is no pulmonic valvular stenosis. Trace to mild pul karlie regurgitation. Great Vessels The aortic root is normal in size. The ascending aorta is normal in size. Aortic arch is not well vis ualized. IVC is normal in size and collapses >50% with inspiration. Pericardium There is no pericardial effusion. 2D Dimensions IVSD d PLAX 1.21 cm M: 0.6-1.2 Ao Root d 2.86 cm M: 3.1 - 3.7 LVPW d PLAX 1.20 cm M: 0.6 - 1.2 Ao Asc Diam d 3.39 cm M: 2.6 - 3.4 LVID d PLAX 4.53 cm M: 4.2 - 5.8 LVDs 3.17 cm M: 2.5 - 4.0 LV EF Teichholz 57.4 % FS 30.08 % LV EDV (Teich) 94.0 mL LV ESV (Teich) 40.0 mL M-Mode TAPSE 2.43 cm (M/F) >1.7 Auto EF LV EDV A4C 142.0 mL LV EDV A2C 95.2 mL LV EDV BP 115.2 mL LV ESV A4C 62.5 mL LV ESV A2C 45.9 mL LV ESV BP 51.8 mL LVEF(%) A4C 56.0 % LVEF(%) A2C 51.8 % LVEF(%) BP 55.0 % LV SV A4C 79.5 ml LV SV A2C 49.3 ml LV SV BP 63.3 ml LV CO A4C 3.5 L/min LV CO A2C 2.2 L/min LV CO BP 2.9 L/min HR A4C 44.45 BPM HR A2C 45.16 BPM LV EDV Index (BP) LV Strain Long Pk Overal Avg (s) 18.14 LA Volume LA Length A4C 4.9 cm LA Length A2C 4.9 cm LA Area A4C s 17.29 cm2 LA Area A2C s 18.93 cm2 LA Vol A4C A-L 51.74 mL LA Vol A2C A-L 61.89 mL LA Vol Biplane A-L 56.7 mL LA Vol/BSA A4C A-L LA Vol/BSA A2C A-L LA Vol/BSA BP A-L 28.0 mL/m2 LA Vol A4C MOD 48.9 mL LA Vol A2C MOD 56.1 mL LA Vol BP MOD 52.2 mL RA Volume RA Area A4C 12.8 cm2 RA ESV A4C (A-L) 31.2mL RA Vol/BSA A4C A-L RA Length A4C 4.5 cm RA ESV A4C (MOD) 29.7mL LV Diastology MV E' medial 0.051 (>0.07 m/s) MV E Vmax 0.85 (0.4-1.3 m/s) MV E/E' MED 16.68 (<14) MV A Vmax 0.85 (0.4-1.3 m/s) MV E' lateral 0.067 (>0.1 m/s) E/A Ratio 1.0 MV E/E' LAT 12.67 (<14) MV E' Average 0.059 m/s MV E/E'(average) 14.40 Aortic Valve AoV Vmax 1.55 m/s LVOT Vmax 1.13 m/s AoV Peak Grad 9.7 mmHg LVOT Peak Grad 5.1 mmHg AoV Area (Vmax) 2.38 cm2 LVOT VTI 0.287 m AoV VTI 0.362 m LVOT Mean Grad 2.8 mmHg AoV Mean David. 1.02 m/s LVOT SV 93.67 mL AoV Mean Grad 4.9 mmHg LVOT Diam s 2.00 cm AoV Area (VTI) 2.59 cm2 Velocity Ratio 0.73 Mitral Valve MV DT 311 (160-240 msec) MV Vmax TIPS 0.85 m/s MV Mean Grad 1.0 (<2mmHg) MV VTI 0.470 m Pulmonary Valve PV Vmax 1.24 (0.5-1.5 m/s) RVOT Vmax 0.87 m/s PV Peak Grad 6.2 mmHg RVOT Peak Gr. 3.0 mmHg PV Mean David 0.73 m/s RVOT VTI 0.186 m PV Mean Grad 2.7 mmHg RVOT Mean Gr. 1.6 mmHg Tricuspid Valve RA Pressure 3.00 mmHg TR Vmax 2.26 m/s TV S' 0.13 m/s TR Peak Grad 20.4 mmHg RVSP (TR) 23.5 mmHg
--- NOTE | 2023-12-06 | DI.MRI_ITS ---
Exam(s) MR BRAIN WO EXAM: MR BRAIN WO CLINICAL HISTORY: CVA TECHNIQUE: Multiplanar multisequence MRI of the brain was performed. COMPARISON: CT CT HEAD WO from 12/05/2023 FINDINGS: CEREBRAL PARENCHYMA: There is no evidence of intracranial hemorrhage, mass effect, or shift of midline structures. There are no extra-axial fluid collections. Ventricles are not enlarged or shifted. There is no significant focal signal abnormality in the cerebellar hemispheres nor within the andrew, m idbrain, and thalami. There is a moderate amount of scattered bilateral periventricular signal abnormality consistent with chronic small vessel disease, most prominent around the atria of the lateral ventricles, slightly mor e so on the left side. This corresponds what is seen on recent brain CT scan. These multiple FLAIR bright foci not associated with hemorrhage, surrounding edema, nor restricted diffusion. PITUITARY GLAND: No mass nor parasellar abnormality. No obvious abnormality in the cavernous sinuses. FLOW VOIDS: The expected flow void are noted. No evidence of obvious aneurysm nor obvious vascular ma lformation. Left vertebral artery is dominant. PARANASAL SINUSES: The visualized paranasal sinuses appear unremarkable. No obvious finding ORBITS: No obvious findings. IMPRESSION: White matter findings as above consistent chronic small vessel ischemic changes. No evidence of acut e ischemic infarct. DATA REPOSITORY:
--- NOTE | 2023-12-06 01:26 | TELEP.MEDREC ---
Date of service: 12/06/23 Time of Service: 01:26 Telepharmacy Home Med Rec Allergies Allergies: penicillin V Allergy (Unknown, Verified 10/22/20 13:31) Interview Person Interviewed: patient Quality Quality of Interview/Accuracy of Medication List: Good Sources Sources used to compile medication list: [employer] Medication List and Retail Pharm[facility] Changes made to Home Medication List: ADDITIONS: asdf jkl; asdf Recommended Changes Attestation: The home medication list is now updated to the best of my knowledge and is ready to be reconciled by the provider. Please contact the [facility] Medication Reconciliation Pharmacist at for any questions.
[2023-12-06 07:20] LABS: HCT 40.9 % (40.0-50.0); HGB 13.4 g/dL (13.5-17.5); MCH 27.2 pg (27.0-33.0); MCHC 32.8 % (32.0-36.0); MCV 83 fL (80-95); MPV 10.5 fL (8.0-11.0); Platelet Count 404 10^3/uL (130-400); RBC 4.92 10^6/uL (4.36-5.78); RDW 15.1 % (11.8-14.1); RDW-SD 45.4 fL; WBC 11.82 10^3/uL (4.4-10.8)
[2023-12-06 07:43] LABS: BUN 13 mg/dL (7-18); CREATININE 0.8 mg/dL (0.70-1.30); Calcium 9.4 mg/dL (8.5-10.1); Calculated LDL 128 mg/dL (<100); Chloride 101 mmol/L (98-107); Cholesterol 226 mg/dL (<200); Estimated GFR 101.95 (mL/min/1.73m2); Glucose 111 mg/dL (74-106); HDL Cholesterol 35 mg/dL (40-60); Potassium 3.3 mmol/L (3.5-5.1); Sodium 140 mmol/L (136-145); Triglyceride 319 mg/dL (<150)
[2023-12-06 07:51] LABS: Hemoglobin A1C 6.9 % (<5.7)
[2023-12-06] MEDS: Potassium Chloride 20 MEQ TABCR 40 MEQ PO (09:30)
[2023-12-06] MEDS: Normal Saline Flush 10 ML SYR IVP ×2 (09:54→21:40)
--- NOTE | 2023-12-06 10:55 | W.INDIABCONS ---
Date of service: 12/06/23 Time of Service: 10:55 Diabetes Inpatient Consult Reason for Visit: routine consult : Diabetes Education DESCRIPTION/ASSESSMENT: Pt is a 58yo male with a Hx of DM II currently insulin dependent at home on 28units of insulin Glargine daily, along with metformin, glipizide and liraglutide injections. A1C was 6.9 today and is congruent with good control. Current BMI is desirable and weight has been stable. His labs show high TGL's, LDL and total Chol with low HDL and potassium. Ordered for heart healthy carb consistent diet with normal consistencies. INTERVENTION: Pt not present in room on visit - was down at MRI. on aggressive nutrition intervention planned at this time. PLAN: will monitor pt's glucose, po intake, and labs and return to offer diabetes education as well as outpatient services to help address his concerning lipid profile. Time Spent in Nutritional Counseling and Treatment: 0
--- NOTE | 2023-12-06 11:48 | NUR.NOTE ---
in chart to check the status of an ECG Nursing Note:
[2023-12-06] MEDS: Insulin Aspart 300 UNITS/3 ML PEN SC ×2 (12:14→21:41)
--- NOTE | 2023-12-06 13:35 | W.PM.PROGNOT ---
Date of Service Date of service: 12/06/23 Time of Service: 13:35 Assessment and Plan Assessment and plan (1) Hypertensive emergency: Status: Resolved Assessment and plan: Continue to hold antihypertensives for today as SBPs are in 140s. I think amlodipine might be a better agent for the patient than atenolol and is to be started tomorrow am. Depending on how his BPs do on amlodipine, he may or may not need reintroduction of chlorthalidone and lisinopril. I do hear rales today and will give him a dose of furosemide. Echo w/o LVH, LVEF is 55-60%, normal wall motion. (2) Bradycardia: Status: Acute Assessment and plan: Continue to hold atenolol. Ensure no urinary retention - could be vagal stimulus. Can be transferred out of the ICU once HR is in the 50s. (3) CVA (cerebral vascular accident): Status: Ruled-out Assessment and plan: MRI/MRA negative. (4) Insulin dependent type 2 diabetes mellitus: Status: Acute Assessment and plan: The patient is actually on Toujeo 22 units HS. We do not have this in the hospital, but will be substituting it with lantus. I have also written him for SSI. (5) DVT prophylaxis: Status: Acute Assessment and plan: lovenox (6) Discharge planning issues: Status: Acute Assessment and plan: Full code Anticipate transfer out of the ICU later today and discharge home tomorrow Subjective Subjective Interval history since last seen: Mr Null states that he does not have CP, SOB, n/v, dizziness. He reports urinary frequency. His HR remains mostly in the high 40s. Exam Narrative Exam Narrative: General: Pleasant middle-aged male who is A&Ox3, no focal deficits, appears comfortable in bed HEENT: EOMI, MMM Heart: RRR, no m/r/g Lungs: crackles at B bases Abdomen: soft, nontender, nondisteded Extremities: no edema BLEs Objective Last Vital Signs Temp 36.7 C 12/06/23 12:06 Pulse 46 L 12/06/23 10:02 Resp 19 12/06/23 10:15 BP 146/75 H 12/06/23 10:13 Pulse Ox 98 12/06/23 10:15 Laboratory Results - last 24 hr 12/05/23 12/05/23 12/06/23 15:20 16:25 05:36 WBC 11.52 H 11.82 H RBC 5.10 4.92 Hgb 13.9 13.4 L Hct 42.5 40.9 MCV 83 83 MCH 27.3 27.2 MCHC 32.7 32.8 RDW 14.9 H 15.1 H Plt Count 417 H 404 H MPV 10.1 10.5 Immature Gran % 0.4 Neutrophils % 59.8 Lymphocytes % 27.9 Monocytes % 7.2 Eosinophils % 3.7 Basophils % 1.0 Nucleated RBC % 0.0 Absolute Neutrophils 6.89 H Absolute Lymphocytes 3.21 Absolute Monocytes 0.83 H Absolute Eosinophils 0.43 Absolute Basophils 0.12 PT 9.3 INR 0.9 Sodium 140 140 Potassium 3.4 L 3.3 L Chloride 100 101 Carbon Dioxide 29.8 30.0 Anion Gap 10.2 9.0 BUN 15 13 Creatinine 0.9 0.8 Est GFR (CKD-EPI 2020) 98.38 101.95 Glucose 72 L 111 H Hemoglobin A1c 6.9 H Calcium 9.7 9.4 Magnesium 1.8 Total Bilirubin 0.2 AST 16 ALT 29 Alkaline Phosphatase 81 Troponin I < 50 < 50 NT-Pro-B Natriuret Pep 127 Total Protein 7.9 Albumin 3.9 Triglycerides 319 H Total Cholesterol 226 H LDL Cholesterol, Calc 128 H HDL Cholesterol 35 L TSH 1.60 Objective Narrative Objective Narrative: MRI brain: White matter findings as above consistent chronic small vessel ischemic changes. No evidence of acute ischemic infarct. MRA brain: 1. Patent carotid arteries in the neck. No hemodynamically significant stenosis. 2. Left vertebral artery is dominant. Echo: Normal left ventricular wall thickness and chamber size. EF is 55 to 60%. Wall motion is normal Normal right ventricular size and systolic function Both atria are normal in size There is no structural or hemodynamically significant valvular disease Estimated right ventricular systolic pressure is 23 mmHg PAWSS Have you Been Recently Intoxicated or Drunk Within the Last 30 days?: No Have you Ever Experienced Previous Episodes of Alcohol Withdrawal?: No Have you ever Experienced Withdrawal Seizures?: No Have you ever Experienced Delirium Tremens(DT)s?: No Have you ever undergone Alcohol Rehabilitation Treatment (i.e, inpt ot outpatient treatment programs)?: No Have you ever Experienced Blackouts?: No Have you ever Combined Alcohol with other Downers within the last 90 days?: No Have you ever Combined Alcohol with any other Substance of Abuse during the last 90 days?: No Positive Blood Alcohol level on Presentation? [PCS.BAL]: No Evidence of Increased Autonomic Activity (i.e. HR>120, tremor, sweating, agitation, nausea)?: No Result: 0 Time Spent with Patient Time Spent with Patient: 25-34 minutes Time was spent: preparing to see the patient(eg.review tests), obtaining and/or reviewing separately otained hiistory, ordering medications,tests, procedures, referring, communicating with other health medicare contact specialist, indepentently interpreting results, counseling the patient and care coordination
[2023-12-06 14:13] LABS: Procalcitonin < 0.1 ng/mL
[2023-12-06] MEDS: Enoxaparin 40 MG/0.4 ML SYR SC (14:53)
[2023-12-06 15:15] LABS: Lab Add On Test DONE
--- NOTE | 2023-12-06 16:01 | INITIAL_ITS ---
Date of service: 12/06/23 Time of Service: 16:01 Care Management Initial Assmt Initial Assessment REASON FOR HOSPITALIZATION:: Hypertensive emergency, CVA, bradycardia PREVIOUS FUNCTIONAL STATUS/SOCIAL/FAMILY SUPPORTS:: Ang resides with his , Regina. He identifies religiously as Syn[employer] and per chart review is employed at [employer]. He remains independent at baseline in the community. CURRENT FUNCTIONAL STATUS:: Anticipate Ang will be downgraded to Med/Surg status and possibly move out to the Med/Surg floor later today. CM following. Patient out of room for tests when CM attempted consult-later in the afternoon he was sleeping-CM did not disturb. ADVANCE DIRECTIVES:: None on file. Has patient been provided with info about the portal/API?: Yes Did the patient sign up for the portal?: Yes CODE STATUS:: Full Code INSURANCE COVERAGE / FINANCIAL ISSUES:: CBA CURRENT HOME/COMMUNITY SERVICES/EQUIPMENT:: Osvaldo Toribio, insulin dependent PRIMARY CARE PHYSICIAN:: Dr. Archer[facility] POTENTIAL DISCHARGE NEEDS:: Follow up appointments, ECHO, MPI Stress Test, Diabetic Education consult PATIENT/FAMILY EDUCATION NEEDS:: Review discharge instructions discuss Ask Me Three. ANTICIPATED BARRIERS TO DISCHARGE:: None identified. TRANSPORTATION:: Via private vehicle with family. PLAN:: Anticipate Ang will return home with no additional services, as soon as tomorrow-may require return to work letter as he was scheduled to work this week. Per MD, medications are currently being adjusted and Ang will remain at [facility] overnight. CM following. [facility] All Active Problems (Updated 12/06/23 @ 13:51 by Mara Drummond MD) Discharge planning issues (Acute) DVT prophylaxis (Acute) Insulin dependent type 2 diabetes mellitus (Acute) Bradycardia (Acute) Medical History Steatosis Elevated LFTs Hypomagnesemia Hypokalemia HLD (hyperlipidemia) Ankylosing spondylitis GERD (gastroesophageal reflux disease) Elevated transaminase level Elevated CPK Deafness in left ear HTN (hypertension) Type 2 diabetes mellitus Family History Mother Diabetes Father Diabetes Social History Smoking/Tobacco Use Status: Current-Occasional Smoking risk assessment performed?: Yes Alcohol Intake: current Alcohol Intake frequency: a few times a month Drug use: Never Substance use type: does not use Household members: spouse and children Housing: house Communication Needs: Hard of Hearing 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) Pets and animals: Yes Pets and animals: cat(s) and dog(s) Special mayi needs: No Seatbelt use: always Do you feel safe at home: Yes Do you feel safe in your relationship?: Yes SDOH(Care Management) Screening Will the Patient Participate in the Screening?: Yes Do you worry about having a steady place to live?: no Problems where you live: no known problems In the past 12 months, have you had to go without electric, gas, oil or water in your home?: no Have you or anyone in your house had to go without enough food to eat?: no Has lack of transportation kept you from medical appointments or from doing things needed for daily living?: no Has anyone in your support network made you feel unsafe for any reason?: no
[2023-12-06] MEDS: Insulin Glargine 300 UNITS/3 ML PEN 18 UNITS SC (21:42)
[2023-12-07] VITALS (15 sets, daily range): BP systolic 139–170; BP diastolic 78–96; PULSE 41–54; RESP 12–20; TEMP 35.7–36.8; O2SAT 95–97
[2023-12-07 06:50] LABS: Abs Immature Grans 0.03 10^3/uL (0.0-0.06); Absolute Basophil Count 0.11 10^3/uL (0.0-0.2); Absolute Eosinophil Count 0.38 10^3/uL (0.0-0.7); Absolute Lymphocyte Count 2.25 10^3/uL (1.2-3.4); Absolute Monocyte Count 0.92 10^3/uL (0.1-0.8); Absolute Neutrophil Count 6.54 10^3/uL (1.2-6.7); Basophils % 1.1; Eosinophils % 3.7; HCT 43.5 % (40.0-50.0); HGB 14.4 g/dL (13.5-17.5); Immature Grans % 0.3; MCH 27.6 pg (27.0-33.0); MCHC 33.1 % (32.0-36.0); MCV 84 fL (80-95); MPV 10.2 fL (8.0-11.0); Neutrophils % 63.9; Platelet Count 376 10^3/uL (130-400); RBC 5.21 10^6/uL (4.36-5.78); RDW-SD 45.5 fL; WBC 10.23 10^3/uL (4.4-10.8)
[2023-12-07 07:11] LABS: Anion Gap 7.2 mmol/L (3-11); BUN 18 mg/dL (7-18); CO2 30.8 mmol/L (21.0-32.0); CREATININE 0.9 mg/dL (0.70-1.30); Calcium 9.2 mg/dL (8.5-10.1); Chloride 101 mmol/L (98-107); Estimated GFR 98.38 (mL/min/1.73m2); Glucose 120 mg/dL (74-106); Magnesium 1.8 mg/dL (1.8-2.4); Potassium 3.3 mmol/L (3.5-5.1); Sodium 139 mmol/L (136-145)
[2023-12-07 07:12] LABS: Hemoglobin A1C 6.8 % (<5.7)
[2023-12-07] MEDS: Potassium Chloride 20 MEQ TABCR 40 MEQ PO (10:18)
[2023-12-07] MEDS: Normal Saline Flush 10 ML SYR IVP (10:19)
[2023-12-07] MEDS: amLODIPine 5 MG TAB PO (10:19)
[2023-12-07] MEDS: Insulin Aspart 300 UNITS/3 ML PEN SC (12:41)
--- NOTE | 2023-12-07 13:27 | PDOC.CMDIS ---
Date of service: 12/07/23 Time of Service: 13:27 LACE Index Scoring Tool Questions: Length of Stay (in days): 2 Was the patient admitted via the E.D.?: Yes Comorbidities: Cerebrovascular Disease and Diabetes w/o Complication E.D. Visits: 0 Answers: Total Score: 7 Risk of Readmission: Low Risk Care Management Discharge Plan Reason for Hospitalization: Hypertensive emergency, CVA, bradycardia Discharge Plan: Ang will return home with no new services. 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 His will drive him home via private vehicle. He will follow up with his PCP and discharge plan of care. He is happy to be going home. Patient/Family Education Needs: Review discharge instructions and limitations, discussion of self care needs including ask me three. [facility] Health Related Social Needs: No Data to Display
[2023-12-07] MEDS: Enoxaparin 40 MG/0.4 ML SYR SC (14:46)
[2023-12-07] MEDS: Chlorthalidone 25 MG TAB PO (15:24)
[2023-12-07] MEDS: Lisinopril 20 MG TAB PO (17:13)
--- NOTE | 2023-12-07 17:17 | DSE_ITS ---
Date of service: 12/07/23 Time of Service: 17:17 DS: Diagnosis Discharge Diagnosis (1) Hypertensive emergency: Status: Resolved (2) Bradycardia: Status: Acute (3) CVA (cerebral vascular accident): Status: Ruled-out (4) Insulin dependent type 2 diabetes mellitus: Status: Acute Discharge Plan Disposition Patient Disposition: Home Condition: Improving Discharge Details Reason For Visit: Hypertensive emergency, CVA, bradycardia Admit Date/Time: 12/05/23 18:25 Admit Provider: Brian Price Attending Provider: Brian Price Primary Care Provider: Duglas Archer Hospital Course Hospital Course: Mr. Null is a 58-year-old male with past medical history of hypertension, insulin-dependent diabetes mellitus type 2, hyperlipidemia, GERD, who was a patient on an [facility] hospitalist service from 12/05/2023 until 12/07/2023 having presented with a hypertensive crisis. The patient originally presented with complaints of chest pain and headache. The chest pain has been ongoing for about a month, and a headache for about a day. He had ruled out for acute coronary syndrome. CT of the head was obtained and revealed a mild hypodensity in the left parietal lobe which might be consistent with chronic small vessel disease; however, acute stroke could not be ruled out. The patient also had blood pressures as high as 243/102 in the emergency department. This was treated with initiation of amlodipine as well as nitroglycerin. Following this the blood pressures dropped to 150 systolic. Hospitalist were asked to admit the patient for a suspected stroke, hypertensive urgency versus emergency, and also bradycardia with heart rates in the 40s (the patient is normally on atenolol). His atenolol was held. The patient was monitored on the nuclear monitoring technician in the ICU originally. He did not require any injectable antihypertensives. He was transferred out of the ICU on 06 of December. He is MRI ruled out an acute stroke. Despite our cessation of his atenolol, he remained bradycardic to the 40s and 50s. For this reason, he will need to have a stress test as an outpatient. He had an echocardiogram on this admission. This revealed a left ventricular ejection fraction of 55 to 60%. Normal wall motion was observed. His TSH is normal. We could not identify any vagal stimuli for him to remain bradycardic more than 48 hours after his last dose of atenolol. There is no evidence of block on his EKG or telemetry. Thankfully, he is asymptomatic of his bradycardia. As far as his blood pressure, this did start to go up on his hospital day 3. We had to reintroduce lisinopril at 20 mg daily his usual dose of chlorthalidone at 25 mg daily in addition to the amlodipine that was started on this admission. He tolerated this therapy well he should follow-up with his primary care provider for a workup of secondary causes of hypertension. He is medically stable for discharge home today. He should follow-up with his primary care provider in [address] the orders for the MPI stress test. His outpatient provider should also recheck his blood work (specifically his chemistry). He did have hypokalemia on this admission which was treated. Care for patient as well as completion of his discharge summary on the day of discharge took 45 minutes. Home Meds and New Rx's Prescriptions: New lisinopril 20 mg Tablet 20 mg PO DAILY Qty: 30 0RF amlodipine 5 mg Tablet 5 mg PO DAILY Qty: 30 0RF nicotine 7 mg/24 hr patch 24 hour 1 patch transdermal Q24H Qty: 28 0RF Continued gabapentin 600 mg Tablet 600 mg PO BID glipizide 10 mg Tablet 10 mg PO BID gabapentin 400 mg Capsule 400 mg PO DAILY chlorthalidone 25 mg Tablet 25 mg PO DAILY omeprazole 40 mg Capsule,Delayed Release(Dr/Ec) 40 mg PO DAILY aspirin 81 mg Tablet,Delayed Release (Dr/Ec) 81 mg PO DAILY metformin 1,000 mg Tablet 1,000 mg PO BID magnesium 250 mg Tablet 500 mg PO DAILY indomethacin 75 mg Capsule, Extended Release 75 mg PO DAILY cholecalciferol (vitamin D3) 25 mcg (1,000 unit) Tablet 1,000 unit PO DAILY famotidine [Pepcid] 20 mg tablet 20 mg PO DAILY Montserrat Tom U-300 Insulin 300 unit/mL (1.5 mL) insulin pen 22 unit SUBCUT HS Patient Comments: INJECT 22 UNITS SUBCUTANEOUSLY EVERY EVENING Discontinued atenolol 100 mg Tablet 100 mg PO DAILY lisinopril 40 mg Tablet 40 mg PO DAILY Discharge Instructions Instructions: Amlodipine (By mouth), How to Stop Smoking (DC), Chronic Hypertension (DC) Additional Instructions: Talk to your PCP about starting cholesterol medicine. Return to the hospital with any fever, bleeding, chest pain, or shortness of breath. Follow up for the stress test. Follow up with your PCP in 1-2 weeks. You must stop smoking! Stand Alone Forms: Nursing Discharge Form Referrals: Duglas Archer MD [Primary Care Provider] - (Please call tomorrow to make a follow up appointment for 1-2 weeks ) Activity:: Activity as Tolerated Equipment/Supplies:: No Equipment Needed Diet:: As Tolerated Discharge Orders Discharge Orders: Discharge Order (Routine); Ordered 12/07/23 Ordered By: Mara Drummond Other Ambulatory Orders: NM MPI rest & stress grp (Routine) Timeframe: 2 Weeks Facility: [facility] - Location: DIAGNOSTIC IMAGING Ordered By: Mara Drummond Discharge Data Discharge Date/Time-TO BE ENTERED AT DEPARTURE: 12/07/23 18:17 DS: Summary Time Spent with Patient providing and/or coordinating discharge services: Greater than 30 minutes Status at Discharge Functional status at discharge: independent ambulation Overall status at discharge: patient is back to baseline Mental Status: mental status grossly normal Speech and Movement: speech and movement normal Mood: congruent mood Affect: normal affect Quality:SDOH Health Related Social Needs: No Data to Display Exam Narrative Exam Narrative: General: Pleasant middle-aged male who is A&Ox3, no focal deficits, appears comfortable in bed HEENT: EOMI, MMM Heart: RRR, no m/r/g Lungs: crackles at B bases Abdomen: soft, nontender, nondisteded Extremities: no edema BLEs Psych Mental Status: mental status grossly normal Speech and Movement: speech and movement normal Mood: congruent mood Affect: normal affect DS: Data Vitals/I&O Vitals and I&O: Vital Signs Temperature 35.9 C L 12/07/23 15:27 Temperature Source Tympanic 12/07/23 15:27 Pulse 51 L 12/07/23 15:27 Pulse Rhythm Regular 12/07/23 15:15 Pulse 43 L 12/07/23 06:01 Respiratory Rate 14 12/07/23 15:27 Respiratory Effort Normal 12/07/23 15:15 Respiratory Depth Normal 12/07/23 15:15 Respiratory Pattern Normal 12/07/23 15:15 Blood Pressure 162/92 H 12/07/23 17:05 Blood Pressure Mean 110 12/07/23 06:31 Blood Pressure Position Sitting 12/07/23 08:29 Pulse Oximetry 95 12/07/23 15:27 Oxygen Delivery Method Room Air 12/07/23 15:27 Oxygen Flow Rate 0 12/07/23 15:27 Pain Level 0 12/07/23 10:00 Comment NURSE NOTIFIED ABOUT BP 12/07/23 14:42 Intake & Output 12/06/23 12/07/23 12/07/23 23:59 11:59 23:59 Intake Total 440 / 680 360 / 540 180 / 540 Output Total 625 / 875 1150 / 1150 Balance -185 / -195 -790 / -610 180 / -610 Weight 78.6 kg Intake: Oral 440 / 680 360 / 540 180 / 540 Output: Urine 625 / 875 950 / 950 Post Void Residual 200 / 200 Other: Urine Color Yellow Yellow Urine Appearance Clear Clear Clear Urine Odor None Normal Comment voids in bedside commode Voiding Methods Bedside Commode Bedside Commode Data Completed and Pending Completed studies during hospitalization [Text1]: Chest x-ray: No acute pulmonary findings on the single AP portable view of the chest. Noncontrast CT of the head: Some mild hypodensity in the left parietal lobe which may be consistent with chronic small vessel disease but comparison to any prior outside images would be helpful if they exist. If clinically indicated follow-up MRI imaging can be performed. MRI of the brain without contrast: White matter findings as above consistent chronic small vessel ischemic changes. No evidence of acute ischemic infarct. Echo: Normal left ventricular wall thickness and chamber size. EF is 55 to 60%. Wall motion is normal Normal right ventricular size and systolic function Both atria are normal in size There is no structural or hemodynamically significant valvular disease Estimated right ventricular systolic pressure is 23 mmHg MRA neck: 1. Patent carotid arteries in the neck. No hemodynamically significant stenosis. 2. Left vertebral artery is dominant. Labs on day of discharge: Labs from last 24 hours 12/07/23 05:36 WBC 10.23 RBC 5.21 Hgb 14.4 Hct 43.5 MCV 84 MCH 27.6 MCHC 33.1 RDW 15.0 H Plt Count 376 MPV 10.2 Immature Gran % 0.3 Neutrophils % 63.9 Lymphocytes % 22.0 Monocytes % 9.0 Eosinophils % 3.7 Basophils % 1.1 Nucleated RBC % 0.0 Absolute Neutrophils 6.54 Absolute Lymphocytes 2.25 Absolute Monocytes 0.92 H Absolute Eosinophils 0.38 Absolute Basophils 0.11 Sodium 139 Potassium 3.3 L Chloride 101 Carbon Dioxide 30.8 Anion Gap 7.2 BUN 18 Creatinine 0.9 Est GFR (CKD-EPI 2020) 98.38 Glucose 120 H Hemoglobin A1c 6.8 H Calcium 9.2 Magnesium 1.8 PFSH All Active Problems (Updated 12/06/23 @ 13:51 by Mara Drummond MD) Discharge planning issues (Acute) DVT prophylaxis (Acute) Insulin dependent type 2 diabetes mellitus (Acute) Bradycardia (Acute) Medical History Steatosis Elevated LFTs Hypomagnesemia Hypokalemia HLD (hyperlipidemia) Ankylosing spondylitis GERD (gastroesophageal reflux disease) Elevated transaminase level Elevated CPK Deafness in left ear HTN (hypertension) Type 2 diabetes mellitus Family History Mother Diabetes Father Diabetes Social History Smoking/Tobacco Use Status: Current-Occasional Smoking risk assessment performed?: Yes Alcohol Intake: current Alcohol Intake frequency: a few times a month Drug use: Never Substance use type: does not use Household members: spouse and children Housing: house Communication Needs: Hard of Hearing 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
== END 2023-12-07 18:17 | disposition home or self-care (01) | DRG 305 ==
LOC: ER 21:15 → ICU 23:38 → MS 12-07 10:08
PROVIDERS: Internal Medicine; Admitting Provider Family Medicine; Emergency Provider Emergency Medicine; PCP Family Medicine; Visit Provider Family Medicine
DX: I16.1 Hypertensive emergency (principal); I10 Essential (primary) hypertension; R00.1 Bradycardia, unspecified; E11.9 Type 2 diabetes mellitus without complications; Z79.4 Long term (current) use of insulin; K21.9 Gastro-esophageal reflux disease without esophagitis; E78.5 Hyperlipidemia, unspecified; F17.210 Nicotine dependence, cigarettes, uncomplicated; R07.89 Other chest pain; R51.9 Headache, unspecified; Z79.84 Long term (current) use of oral hypoglycemic drugs; Z79.899 Other long term (current) drug therapy; Z79.85 Long-term (current) use of injectable non-insulin antidiabetic drugs
CPT/HCPCS: 00123; 36415; 70547; 80048; 80053; 80061; 84145; 85027; 93005; 99291; J1650; 70450; 70551; 71045; 83036; 83735; 83880; 84443; 84484; 85025; 85610; 93010; 93306; 99223; 99232; 99239; J1815

== ENCOUNTER → 2023-12-19 01:32 | Outpatient (CLI) | payer OTHER, SELFPAY ==
--- NOTE | 2023-12-19 07:45 | DI.NM_ITS ---
APPROVED REPORT Exam: Pharmacologic Patient Location: Out-Patient Room/Bed: Stress Nurse: Leia Carbajal RN Ordering Provider:STEVE FERNANDES, Contact Number: [phone] BMI: 24.82 Baseline Rhythm: Sinus Rhythm Comment: RBBB Indications: Bradycardia, r/o CAD Medical History Medical History: DM2, CVA, hypertensive emergency, bradycardia, HLD, GERD, HTN, hypokalemia, hypomagn esemia Cardiac Medications: Amlodipine, aspirin, famotidine, gabapentin, chlorthalidone, lisinopril, metform in, omeprazole, nocitine patch Allergies: penicillin Cardiac Risk Factors: Family Hx, HTN, HLD, diabetes, smoker Previous Cardiac Procedures: None Pretest Chest Pain Characteristics: None Exercise History: Sedentary Physical Disabilities: None Lung Sounds: Clear to auscultation Heart Sounds: Regular Stress Test Details Test: Exercise stress converted to pharmacologic stress due to failure to obtain a diagnostic stress test. Nuclear Acquisition: Rest Tc-99m/Stress Tc-99m 1 day Rest Isotope: Tc-99m Sestamibi. Dose: 11 Date: 12/19/2023 Injection Time: 0905 Stress Isotope: Tc-99m Sestamibi. Dose: 31.5 Date: 12/19/2023 Injection Time: 1035 HR Resting HR Supine: 68 bpm Max Heart Rate (APMHR): 161.001662 bpm Resting HR Standin bpm Target HR (85% APMHR): 136.637144 bpm Max HR Achieved: 103 bpm % of APMHR: 63.98 Recovery HR: 83 bpm HR response to stress: Normal HR response to stress BP Resting BP Supine: 138/90 mmHg Resting BP Standin/90 mmHg Max BP: 190/94 mmHg Recovery BP: 148/78 mmHg BP response to stress: Normal blood pressure response to stress. ECG Resting ECG: Sinus Rhythm, RBBB Ectopy: none Stress ECG: Sinus Rhythm, LBBB, Sinus Tachycardia ST Change: No significant ST segment changes noted Arrhythmia: None Recovery ECG: Sinus Rhythm, RBBB Recovery ST Change: No significant ST segment changes noted Recovery Arrhythmia: None Clinical Reason for Termination: Fatigue Stress Symptoms: None Exercise duration: 4 min52 sec Highest Stage Reached: Stage 2: 2.5 mph at 12% grade. Exercise capacity: 6.88 METs Angina Score: None Silvestre Treadmill Score: 3.2 Rate Pressure Product: [id number] Stress ECG Conclusion 1. Resting electrocardiogram right bundle branch block 2. Patient underwent testing using low-level exercise and pharmacologic stress with regadenoson 3. Peak heart rate achieved was 66% of predicted for age 4. The electrocardiographic portion of the test was nondiagnostic 5. See MPI report Silvestre Treadmill Score is 3.2 which is Moderate risk. Stress Test Summary STAGE Time (mins) Speed (mph) Grade (%) HR BP SpO2 SYMPTOMS METS Supine 68 138/90 96 Standing 74 130/80 1 3 1.7 10 92 178/90 4.5 1 min post Lexiscan injection 103 190/94 98 SOB 3 min post Lexiscan injection 91 150/68 98 6 min post Lexiscan injection 83 148/78 98 SOB Resolved Transition to lexiscan from inability to reach THR. Lexiscan administered at 4:11 of exercise. Fuad t experienced mild SOB, resolved after a couple of minutes of rest after lexiscan administration. MPI Conclusion Myocardial perfusion is normal. There is no ischemia or evidence of prior infarction Calculated EF is 45%, visually appears higher. Wall motion is normal Radiologist Interpretation Radiologist agrees with Satellite Dish Repairer's Interpretation. Radiologist Interpretation by: Mylene John MD Interpretation Date/Time: 12/19/2023 13:13:52
[2023-12-19] MEDS: Regadenoson 0.4 MG/5 ML SYR IVP (10:52)
== END ==
PROVIDERS: PCP Family Medicine; Visit Provider Internal Medicine
DX: R00.1 Bradycardia, unspecified (principal)
CPT/HCPCS: 78452; 93017; J2785

== ENCOUNTER 2024-02-28 10:42 | Outpatient (CLI) | payer OTHER, SELFPAY ==
--- NOTE | 2024-02-28 08:45 | DI.RAD_ITS ---
Exam(s) XR SHOULDER RT COMPLETE 2+V EXAM: XR SHOULDER RT COMPLETE 2+V CLINICAL HISTORY: RIGHT SHOULDER PAIN. TECHNIQUE: 2D digital imaging was performed of the right shoulder. Two images were obtained. Grash ey and axillary views were obtained. COMPARISON: CR RIGHT SHOULDER COMPLETE from 12/03/2011 FINDINGS: BONES: No acute fracture is present. No bony destructive lesion is seen. JOINTS: No dislocation present. The acromioclavicular and glenohumeral joints are well maintained. SOFT TISSUE: Normal. IMPRESSION: Unremarkable radiographs of the right shoulder. DATA REPOSITORY: RADIATION DOSE DELIVERED:
== END 2024-02-28 10:43 | disposition home or self-care (01) ==
LOC: DIORS 10:43
PROVIDERS: PCP Family Medicine; Visit Provider Student in an Organized Health Care Education/Training Program
DX: M25.511 Pain in right shoulder (principal)
CPT/HCPCS: 73030

== ENCOUNTER 2024-08-30 17:46 | Outpatient (REF) | payer OTHER, SELFPAY ==
[2024-08-30 21:49] LABS: TSH (W/Ref FT4) 0.48 uIU/mL (0.36-3.74)
[2024-09-05 17:52] LABS: Testosterone, Free 10.1 ng/dL (3.67-13.9); Testosterone, Total 420 ng/dL (240-950)
== END 2024-08-30 17:47 | disposition home or self-care (01) ==
LOC: NCHCN 17:46
PROVIDERS: PCP Family Medicine; Visit Provider Family Medicine
DX: F52.21 Male erectile disorder (principal)
CPT/HCPCS: 84402; 84403; 84443

== ENCOUNTER 2025-01-10 09:21 | Outpatient (REF) | payer OTHER, SELFPAY ==
[2025-01-10 14:43] LABS: HCT 42.3 % (40.0-50.0); HGB 13.8 g/dL (13.5-17.5); MCH 27.7 pg (27.0-33.0); MCHC 32.6 % (32.0-36.0); MCV 85 fL (80-95); Platelet Count 484 10^3/uL (130-400); RBC 4.98 10^6/uL (4.36-5.78); RDW 16.2 % (11.8-14.1); RDW-SD 50.3 fL; WBC 11.18 10^3/uL (4.4-10.8)
[2025-01-10 15:07] LABS: ALT 44 U/L (16-63); AST 24 U/L (15-37); Albumin 4.1 g/dL (3.4-5.0); Alkaline Phosphatase 87 U/L (46-116); Anion Gap 6.3 mmol/L (3-11); BUN 11 mg/dL (7-18); Bilirubin, Total 0.3 mg/dL (0.2-1.0); CO2 31.7 mmol/L (21.0-32.0); CREATININE 0.9 mg/dL (0.70-1.30); Calcium 9.7 mg/dL (8.5-10.1); Chloride 101 mmol/L (98-107); Estimated GFR 97.78 (mL/min/1.73m2); Glucose 181 mg/dL (74-106); LDL CHOLESTEROL 174 mg/dL (<100); Potassium 3.9 mmol/L (3.5-5.1); Sodium 139 mmol/L (136-145); Total Protein 7.5 g/dL (6.4-8.2)
[2025-01-10 16:30] LABS: COMMENT (LAB VIEW ONLY) 89.32 mg/dL; Microalb ug/mg Crea 919.3 ug/mg Cr
== END 2025-01-10 09:22 | disposition home or self-care (01) ==
LOC: NCHCN 09:21
PROVIDERS: PCP Family Medicine; Visit Provider Family Medicine
DX: E11.9 Type 2 diabetes mellitus without complications (principal); E11.40 Type 2 diabetes mellitus with diabetic neuropathy, unspecified; E78.5 Hyperlipidemia, unspecified
CPT/HCPCS: 80053; 83721; 85027; 82043; 82570

== ENCOUNTER 2025-07-11 16:52 | Outpatient (REF) | payer OTHER, SELFPAY ==
[2025-07-11 21:06] LABS: Abs Immature Grans 0.04 10^3/uL (0.0-0.06); HCT 40.2 % (40.0-50.0); HGB 13.3 g/dL (13.5-17.5); Immature Grans % 0.3 %; MCH 27.8 pg (27.0-33.0); MCHC 33.1 % (32.0-36.0); MCV 84 fL (80-95); MPV 9.5 fL (8.0-11.0); Platelet Count 495 10^3/uL (130-400); RBC 4.78 10^6/uL (4.36-5.78); RDW 15.0 % (11.8-14.1); RDW-SD 45.6 fL; WBC 12.31 10^3/uL (4.4-10.8)
[2025-07-11 21:35] LABS: ALT 36 U/L (16-63); AST 26 U/L (15-37); Albumin 4.2 g/dL (3.4-5.0); Alkaline Phosphatase 89 U/L (46-116); Anion Gap 12.2 mmol/L (3-11); BUN 13 mg/dL (7-18); Bilirubin, Total 0.2 mg/dL (0.2-1.0); CO2 28.8 mmol/L (21.0-32.0); Calcium 9.7 mg/dL (8.5-10.1); Chloride 95 mmol/L (98-107); Estimated GFR 76.37 (mL/min/1.73m2); Glucose 194 mg/dL (74-106); LDL CHOLESTEROL 116 mg/dL (<100); Potassium 3.9 mmol/L (3.5-5.1); Sodium 136 mmol/L (136-145); Total Protein 7.6 g/dL (6.4-8.2)
== END 2025-07-11 16:53 | disposition home or self-care (01) ==
LOC: NCHCN 16:52
PROVIDERS: PCP Family Medicine; Visit Provider Family Medicine
DX: I10 Essential (primary) hypertension (principal); E78.5 Hyperlipidemia, unspecified
CPT/HCPCS: 80053; 83721; 85025

== ENCOUNTER 2025-09-25 07:33 | Day surgery (SDC) | payer OTHER, SELFPAY ==
--- NOTE | 2025-09-24 17:22 | W.ANESPRE ---
General Info Date of Service Date Performed: 09/25/25 Height: 5 ft 9 in Weight: 81.193 kg Body Mass Index (BMI): 26.4 Surgical Procedure: Operation Date: 09/25/25 09:05 Proposed Procedure Side Surgeon liss Laguerre MD Meds Allergies and Home Medications Allergies Allergy/AdvReac Type Severity Reaction Status Date / Time penicillin V Allergy Unknown Hives Verified 09/25/25 07:50 Home Medication ?Medication ?Instructions ?Recorded aspirin 81 mg tablet,delayed 81 mg PO DAILY 10/26/19 release cholecalciferol (vitamin D3) 25 1,000 unit PO DAILY 10/26/19 mcg (1,000 unit) tablet gabapentin 600 mg tablet 600 mg PO BID 10/26/19 glipizide 10 mg tablet 10 mg PO BID 10/26/19 metformin 1,000 mg tablet 1,000 mg PO BID 10/26/19 omeprazole 40 mg capsule,delayed 40 mg PO DAILY 10/26/19 release insulin glargine U-300 conc 300 22 unit subcut HS 12/06/23 unit/mL (1.5 mL) subcutaneous pen (Toujeo SoloStar U-300 Insulin) lisinopril 40 mg tablet 40 mg PO DAILY 01/31/24 pravastatin 10 mg tablet 10 mg PO DAILY 01/31/24 amlodipine 10 mg tablet 10 mg PO DAILY 06/14/25 chlorthalidone 25 mg tablet 25 mg PO DAILY 06/14/25 gabapentin 400 mg capsule 400 mg PO QHS 06/14/25 insulin glargine 100 unit/mL (3 25 unit subcut QPM 06/14/25 mL) subcutaneous pen (Lantus Solostar U-100 Insulin) Held on 09/23/25. Instructions: Changed by Provider sildenafil 50 mg tablet (Viagra) 50 mg PO DAILY PRN 06/14/25 tirzepatide 5 mg/0.5 mL 5 mg subcut QWEEK 08/28/25 subcutaneous pen injector (Toño) bisacodyl 5 mg tablet,delayed 5 mg PO ONCE #4 tabs 09/18/25 release (Dulcolax (bisacodyl)) polyethylene glycol 3350 17 17 g PO ONCE #238 grams 09/18/25 gram/dose oral powder Current Visit Medications: Current Medications Generic Name Dose Route Start Last Admin Trade Name Freq PRN Reason Stop Dose Admin Ringer's Solution 1,000 mls @ 80 mls/hr 09/25/25 06:00 IV 09/25/25 23:59 INFUSION KATY Sodium Chloride 0 ml 09/25/25 06:00 Normal Saline Flush 10 Ml Syr IV 09/25/25 23:59 PRN PRN Sodium Chloride 0 ml 09/25/25 06:00 Normal Saline 10 Ml Vial IJ 09/25/25 23:59 DIRECTED PRN Sterile Water 0 ml 09/25/25 06:00 Water,Injection,Sterile 10 Ml Vial IJ 09/25/25 23:59 DIRECTED PRN PFSH Active Problems Active Problems: Problem Status Onset Code Asymmetrical hearing loss Acute H91.8X3 Hard of hearing Acute H91.90 No-show for appointment Acute Z91.199 Dyskinesis of right scapula Acute M25.311 Insulin dependent type 2 diabetes mellitus Acute E11.9, Z79.4 Bradycardia Acute R00.1 Hypertensive emergency Resolved I16.1 Medical History Medical History Elevated liver enzymes Gastroesophageal reflux disease without esophagitis Steatosis of liver Shoulder pain Erectile dysfunction Essential hypertension 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 Presbyopia of both eyes Nevus of choroid of left eye Overweight Neuropathy due to secondary diabetes mellitus Retinopathy Steatosis Elevated LFTs Hypomagnesemia Hypokalemia HLD (hyperlipidemia) Ankylosing spondylitis GERD (gastroesophageal reflux disease) Elevated transaminase level Elevated CPK Deafness in left ear HTN (hypertension) Type 2 diabetes mellitus Tobacco Smoking/Tobacco Use Status: Current every day Tobacco Type: cigarettes Smoking cigarettes per day: 10 Alcohol Alcohol Intake: current Alcohol intake frequency: a few times a week Substance Use Substance use: Occasionally Substance use type: marijuana Vital Signs and Lab Results Vital Signs Most Recent Vital Signs in EMR: Temp Pulse Resp BP Pulse Ox 36.4 C L 70 18 146/90 H 97 09/25/25 08:04 09/25/25 08:04 09/25/25 08:04 09/25/25 08:04 09/25/25 08:04 Imaging and Studies Imaging and Studies Study information below may be from another EMR and interpreted by another provider. Please see original notes in EMR for more complete details. EKG Summary: 12/05/23 Conclusion Sinus bradycardia 45 RBBB no stemi Stress Test Summary: 12/19/23 Stress ECG Conclusion 1. Resting electrocardiogram right bundle branch block 2. Patient underwent testing using low-level exercise and pharmacologic stress with regadenoson 3. Peak heart rate achieved was 66% of predicted for age 4. The electrocardiographic portion of the test was nondiagnostic 5. See MPI report Silvestre Treadmill Score is 3.2 which is Moderate risk. Echocardiogram Summary: 12/06/23 Conclusion Normal left ventricular wall thickness and chamber size. EF is 55 to 60%. Wall motion is normal Normal right ventricular size and systolic function Both atria are normal in size There is no structural or hemodynamically significant valvular disease Estimated right ventricular systolic pressure is 23 mmHg Anesthesia Assessment and Plan Anesthesia History Personal History: No History of Anesthesia Complications Family History: No Family History of Anesthesia Complications Exercise Tolerance Exercise Tolerance: Metabolic Equivalents>4 Pertinent Negatives Pertinent Negatives: No Major Cardiovascular Symptoms or Complaints and No Major Pulmonary Symptoms or Complaints Cardiac & Pulmonary Exam Cardiac Exam: Normal S1/S2 Heart Sounds Pulmonary Exam: Clear Bilateral Breath Sounds Implantable Cardiac Device Does patient have a Pacemaker or an ICD?: No Airway Exam Known Difficult Airway: No Mallampati Class: 3 Mouth Opening: Normal (> 3cm) Thyromental Distance: Greater than 3 cm Facial Hair: Full [place] Range of Motion: Full ROM Neck Circumference: Normal Teeth Condition: Generalized Poor Dentition and Removable Dentures/Plates Lower (upper dentures removed) ASA Classification ASA Score: ASA 3 Emergency Case?: No NPO Status NPO Status: NPO Clears >2 hours, Solids >8 hours Anesthesia Plan Resuscitation Status: Full Code Anesthesia Technique: General Anesthesia Airway Planned: Natural Airway Monitors Used: Standard Monitors Preoperative Comments:: 60 yo for colo. Sig PMHx: HTN (chlorthalidone, amlodipine, lisinopril), CVA, GERD (omeprazole), DM2 (neuropathy. munjaro, metformin, glipizide, glargine), ankylosis spondylitis Smoker, occ EtOH/cannabis. ECG: sinus lisa. ECHO: LVEF 55-60%, no sig valve issues. stress: RBBB, LVEF 45%, no evidence of ischemia/infarction.
[2025-09-25 08:04] VITALS: BP 146/90; PULSE 70; RESP 18; TEMP 36.4; O2SAT 97
[2025-09-25] MEDS: Lactated Ringers 1,000 ML 80 ML IV (08:18)
[2025-09-25 08:53] VITALS: BMI 26.4
[2025-09-25 09:24] VITALS: BP 143/87; PULSE 68; RESP 15; TEMP 36.6; O2SAT 97
--- NOTE | 2025-09-25 09:24 | W.PM.DSUDISC ---
Date of service: 09/25/25 Discharge Plan Disposition Patient Disposition: Home Condition: Good Discharge Details Reason For Visit: Screening colonoscopy Attending Provider: Minal Laguerre Primary Care Provider: Duglas Archer Home Meds and New Rx's Prescriptions: Continued gabapentin 600 mg Tablet 600 mg PO BID glipizide 10 mg Tablet 10 mg PO BID omeprazole 40 mg Capsule,Delayed Release(Dr/Ec) 40 mg PO DAILY aspirin 81 mg Tablet,Delayed Release (Dr/Ec) 81 mg PO DAILY metformin 1,000 mg Tablet 1,000 mg PO BID cholecalciferol (vitamin D3) 25 mcg (1,000 unit) Tablet 1,000 unit PO DAILY lisinopril 40 mg tablet 40 mg PO DAILY pravastatin 10 mg tablet 10 mg PO DAILY gabapentin 400 mg capsule 400 mg PO QHS sildenafil [Viagra] 50 mg tablet 50 mg PO DAILY PRN Rx Instructions: administer 30 minutes to 4 hours before activity chlorthalidone 25 mg tablet 25 mg PO DAILY amlodipine 10 mg tablet 10 mg PO DAILY insulin glargine [Lantus Solostar U-100 Insulin] 100 unit/mL (3 mL) insulin pen 25 unit subcut QPM Mounjaro 5 mg/0.5 mL pen injector 5 mg subcut QWEEK Patient Comments: pt has not started this medication yet insulin glargine U-300 conc [Toujeo SoloStar U-300 Insulin] 300 unit/mL (1.5 mL) insulin pen 22 unit SUBCUT HS Patient Comments: INJECT 22 UNITS SUBCUTANEOUSLY EVERY EVENING Discontinued bisacodyl [Dulcolax (bisacodyl)] 5 mg tablet,delayed release (DR/EC) 5 mg PO ONCE Qty: 4 0RF Rx Instructions: Take per colonoscopy instructions provided by ordering providers office polyethylene glycol 3350 17 gram/dose powder 17 g PO ONCE Qty: 238 0RF Rx Instructions: Take per colonoscopy instructions provided by ordering providers office Discharge Instructions Additional Instructions: Your colonoscopy went well today. He did not have any evidence of polyps or other abnormal findings. The recommendation would be to have a repeat colonoscopy in 10 years. Please contact the general surgery office if you have further questions or concerns. 1. If tolerated, consume a soft, low fiber diet for 1-2 days. 2[address] Do not drive, drink alcohol, operate machinery, make critical decisions, or do activities that require coordination or balance for 24 hours. 3. Because air was put into your colon during the procedure, expelling air from your rectum (passing gas or farting) is normal. 4. You may not have a bowel movement for 1-3 days because of the colonoscopy prep. This is normal. 5. Go directly to the emergency room if you notice any of the following: Develop chills (warm to touch), or if you have a thermometer and your temperature is above 101 Difficulty breathing or difficultly swallowing Persistent vomiting Severe abdominal pain, other than gas cramps Severe chest pain Black, tarry stools Any bleeding ? exceeding one tablespoon 6. Call your physician if the site where your intravenous was started becomes red, swollen, painful, and warm to touch. 7. Your physician has reviewed your pre-procedure medications. Please continue to take those medications as previously ordered. You will be given specific information/education regarding any changes to your medications before leaving. Stand Alone Forms: Portal Information Activity:: Activity as Tolerated Diet:: As Tolerated Discharge Orders Discharge Orders: Discharge Order (Routine); Ordered 09/25/25 Ordered By: Minal Laguerre
--- NOTE | 2025-09-25 09:26 | COLE_ITS ---
Date of service: 09/25/25 Time of Service: : Colonoscopy Report Date of procedure: 09/25/25 Pre-op diagnosis general: Screening colonoscopy Post-op diagnosis procedure note: same Procedure: Colonoscopy Surgeon: Minal Laguerre Anesthesia Type: General:No Airway Estimated blood loss (mL): 0 Pathology: none sent Complications: None Disposition: PACU Indications: Patient is a 60-year-old male who presents for his first screening colonoscopy. He denies any changes in bowel habits or family history of colon cancer. Prep: Miralax/Dulcolax Procedure Start Time: :01 Procedure End Time: : Retraction Time: 10 Findings: Normal colonoscopy. Procedure Description: Informed consent was obtained. The patient was taken to the endoscopy suite and placed in the left lateral decubitus position. After adequate intravenous sedat ion, digital rectal exam was performed, which was normal. A colonoscope was inserted into the rectum and easily negotiated to the cecum. The ileocecal valve and appendiceal orifice were identified. The entire colonic mucosa was then carefully circumferentially inspected upon slow withdrawal of the scope. The entire examined colon appeared normal. The prep in the ascending colon had some residual stool which was removed using lavage. The rectum was unremarkable. The patient tolerated the procedure well with no complications. Postoperatively, the patient was transferred to the recovery room in stable condition. [place] Bowel Prep [place] Bowel Prep Right Colon: 2 Left Colon: 3 Transverse Colon: 3 Total Score: 8
--- NOTE | 2025-09-25 09:33 | W.ANESPOSTOP ---
Postoperative Evaluation Date, Time and Location Date Performed: 09/25/25 Time Performed: 09:30 Patient Location: Day Surgery Unit Vital Signs Most Recent Imported Vital Signs: Most Recent Vital Signs Temp Pulse Resp BP Pulse Ox 36.6 C 68 15 143/87 H 97 09/25/25 09:24 09/25/25 09:24 09/25/25 09:24 09/25/25 09:24 09/25/25 09:24 Pain Score Most Recent Pain Score: Most Recent Pain Score Pain Level 0 09/25/25 09:24 Assessment Mental Status: Awake (Alert & Oriented to Patient Baseline) Airway and Respiratory Function: Patent airway with normal (patient baseline) respiratory exam Cardiovascular Function: Hemodynamically Stable Hydration Status: Adequately Hydrated Nausea & Vomiting: No Nausea or Vomiting Pain: Pt. Denies Any Pain Peripheral Nerve Block: Patient did not receive a nerve block
[2025-09-25 09:55] VITALS: BP 142/94; PULSE 69; RESP 18; TEMP 36.1; O2SAT 96
== END 2025-09-25 10:20 | disposition home or self-care (01) ==
PROVIDERS: PCP Family Medicine; Visit Provider Student in an Organized Health Care Education/Training Program
PROC: 0DJD8ZZ Inspection of Lower Intestinal Tract, Via Natural or Artificial Opening Endoscopic (ICD-10-PCS; CPT 45378; principal; 2025-09-25 09:00)
DX: Z12.11 Encounter for screening for malignant neoplasm of colon (principal)
CPT/HCPCS: 45378; J2704